=== PATIENT | female | born 1990 | race Two or more races ===

== ENCOUNTER 2017-01-24 10:39 | Emergency (ER) | payer MEDICAID ==
[~2017-01-24] VITALS: Ht 154.9 cm; Wt 130.2 kg
[~2017-01-24 10:39] MED LIST: AMOX-430 PO; IBUP-51 PO
[2017-01-24 10:47] VITALS: BP 144/94
== END 2017-01-24 11:04 | disposition home or self-care (01) ==
LOC: ER 10:48
DX: H10.9 Unspecified conjunctivitis (principal); F17.200 Nicotine dependence, unspecified, uncomplicated; J45.909 Unspecified asthma, uncomplicated
CPT/HCPCS: A4606; Z7610

== ENCOUNTER 2019-07-06 17:38 | Emergency (ER) | payer MEDICAID, OTHER ==
[~2019-07-06] VITALS: Ht 157.5 cm; Wt 156.5 kg
[2019-07-06] MEDS ORDERED: DEXAMETHASONE SOD PHOSPHATE 10 MG/ML VIAL ONE (18:24)
[2019-07-06] MEDS ORDERED: DEXAMETHASONE SOD PHOSPHATE 4 MG/ML VIAL IM ONE (18:30)
[2019-07-06 18:36] VITALS: BP 171/98
--- NOTE | 2019-07-06 19:46 | NUR ---
ASSUMED CARE FOR PT.
--- NOTE | 2019-07-06 19:46 | NUR ---
Patient discharged to home in stable condition. Written and verbal after care instructions given. Patient verbalizes understanding of instruction. Pt ambulatory with a steady gait
== END 2019-07-06 19:48 | disposition home or self-care (01) ==
LOC: ER 17:40
DX: J02.9 Acute pharyngitis, unspecified (principal); J06.9 Acute upper respiratory infection, unspecified; F17.200 Nicotine dependence, unspecified, uncomplicated; E66.01 Morbid (severe) obesity due to excess calories; Z79.899 Other long term (current) drug therapy; Z68.44 Body mass index [BMI] 60.0-69.9, adult
CPT/HCPCS: 71045; 87070; 87880; 96372; 99284; 99406; J1100; 86403-TC

== ENCOUNTER 2019-07-19 00:10 | Emergency (ER) | payer OTHER ==
[~2019-07-19] VITALS: Ht 154.9 cm; Wt 154.2 kg
--- NOTE | 2019-07-19 00:35 | NUR ---
PT BIBS. SOB SINCE 5PM. LATERAL CHEST PAIN UPON INSPIRATION. TACHYPNEIC. PT AAOX4, CONNECTED TO THE SUCTION DREDGE DUMPING SUPERVISOR AND POX. AWAITING FOR MD ARIZA
[2019-07-19] MEDS ORDERED: predniSONE 20 MG TABLET ONE (00:43)
[2019-07-19] MEDS ORDERED: ALBUTEROL FS 2.5 MG/3 ML VIAL.NEB ONE (00:45)
[2019-07-19] MEDS ORDERED: IPRATROPIUM NEB FS 0.5 MG/2.5 ML AMPUL.NEB ONE (00:45)
--- NOTE | 2019-07-19 00:48 | NUR ---
rt at bedside for breathing treatment
[2019-07-19] MEDS ORDERED: IPRATROPIUM NEB FS 0.5 MG/2.5 ML AMPUL.NEB NEB ONE (01:00)
[2019-07-19] MEDS ORDERED: ALBUTEROL FS 2.5 MG/3 ML VIAL.NEB NEB ONE (01:00)
[2019-07-19] MEDS ORDERED: predniSONE 20 MG TABLET PO ONE (01:00)
--- NOTE | 2019-07-19 01:26 | NUR ---
patient sleeping comfortably in bed. easily arousable through tactile and verbal stimuli. connected to monitor.
[2019-07-19 02:48] VITALS: BP 146/85
--- NOTE | 2019-07-19 02:48 | NUR ---
Patient discharged to home in stable condition. Written and verbal after care instructions given. Patient verbalizes understanding of instruction. Prescriptions given and explained to the patient.
== END 2019-07-19 02:49 | disposition home or self-care (01) ==
LOC: ER 00:11
DX: J20.9 Acute bronchitis, unspecified (principal); J98.11 Atelectasis; E66.01 Morbid (severe) obesity due to excess calories; F17.200 Nicotine dependence, unspecified, uncomplicated; Z68.44 Body mass index [BMI] 60.0-69.9, adult; Z79.899 Other long term (current) drug therapy
CPT/HCPCS: 71045; 94640 ×2; 99284; J7512

== ENCOUNTER 2019-07-20 00:40 | Emergency (ER) | payer OTHER ==
[~2019-07-20] VITALS: Ht 154.9 cm; Wt 154.2 kg
--- NOTE | 2019-07-20 01:20 | NUR ---
TO ER BED 11 AMBULATORY C/O L FLANK PAIN SINCE YESTERDAY. PT AAOX4 NO ACUTE DISTRESS NOTED, RESP EVEN AND UNLABORED. PENDING ER MD ARIZA.
[2019-07-20] MEDS ORDERED: KETOROLAC TROMETHAMINE INJ 60 MG/2 ML VIAL IM ONE ×2 (02:00→02:06)
[2019-07-20] MEDS ORDERED: LORAZEPAM INJ 2 MG/ML VIAL IM ONE (02:00)
[2019-07-20] MEDS ORDERED: LORAZEPAM 1 MG TABLET ONE (02:06)
--- NOTE | 2019-07-20 02:11 | NUR ---
PT MEDICATED ORDERED.
[2019-07-20 02:34] VITALS: BP 125/78
--- NOTE | 2019-07-20 02:34 | NUR ---
Patient discharged to home in stable condition. Written and verbal after care instructions given. Patient verbalizes understanding of instruction and Rx. Pt's is driving pt home. VSS
== END 2019-07-20 02:34 | disposition home or self-care (01) ==
LOC: ER 00:44
DX: S29.012A Strain of muscle and tendon of back wall of thorax, initial encounter (principal); F17.200 Nicotine dependence, unspecified, uncomplicated; X58.XXXA Exposure to other specified factors, initial encounter; Y93.89 Activity, other specified; Y92.89 Other specified places as the place of occurrence of the external cause; Y99.8 Other external cause status
CPT/HCPCS: 96372 ×2; 99283; J1885

== ENCOUNTER 2021-03-13 08:11 | Inpatient (IN) | payer OTHER ==
[~2021-03-13] VITALS: Ht 152.4 cm; Wt 186.2 kg
--- NOTE | 2021-03-13 08:20 | NUR ---
DR. ROBERTS AT BEDSIDE FOR EVAL.
--- NOTE | 2021-03-13 08:25 | NUR ---
The patient bibs with c/o "Had 2nd dose of Pfizer 03/11 been Coughing xcouple days today cant breathe". Noted the patient has non-productive cough and oxygen saturation in room air is at 85%. Respiration regular. The patient is attached to the monitor.
[2021-03-13 08:55] LABS: BASOPHILS % (AUTO) 0.4 % (0.0-2.0); EOSINOPHILS % (AUTO) 1.9 % (0.0-6.0); HEMATOCRIT 47 % (33-45); LYMPHOCYTES # (AUTO) 1.3 K/uL (0.8-4.8); LYMPHOCYTES % (AUTO) 12.9 % (20.0-44.0); MEAN CORPUSCULAR HGB CONC 32 g/dl (31.0-36.0); MEAN CORPUSCULAR VOLUME 80 fL (82-100); MONOCYTES # (AUTO) 0.7 K/uL (0.1-1.30); MONOCYTES % (AUTO) 7.1 % (2.0-12.0); NEUTROPHILS % (AUTO) 77.7 % (43.0-81.0); PLATELET COUNT (AUTO) 264 K/uL (150-450); WHITE BLOOD COUNT (AUTO) 10.2 K/uL (4.3-11.0)
--- NOTE | 2021-03-13 09:02 | NUR ---
covid swab done and sent to the lab
[2021-03-13 09:04] LABS: CARBON DIOXIDE 31 mmol/L (21-32); CHLORIDE 102 mmol/L (98-107); CREATININE 0.6 mg/dL (0.6-1.3); GLUCOSE 112 mg/dL (74-106); POTASSIUM 4.4 mmol/L (3.5-5.1); SODIUM SERUM 138 mmol/L (136-145); UREA NITROGEN, BLOOD 12 mg/dL (7-18)
[2021-03-13 09:17] LABS: ALANINE AMINOTRANSFERASE 33 U/L (12-78); ALBUMIN 2.9 g/dL (3.4-5.0); ALKALINE PHOSPHATASE 92 U/L (46-116); ASPARTATE AMINOTRANSFERASE 25 U/L (15-37); BILIRUBIN,DIRECT 0.1 mg/dL (0.0-0.2); BILIRUBIN,TOTAL 0.4 mg/dL (0.2-1.0)
--- NOTE | 2021-03-13 10:06 | NUR ---
CALLED LAB FOR PCR
--- NOTE | 2021-03-13 10:14 | NUR ---
PCR SWAB DONE AND SENT TO LAB
[2021-03-13] MEDS ORDERED: FUROSEMIDE 20 MG/2 ML VIAL IV ONE (10:30)
[2021-03-13] MEDS ORDERED: FUROSEMIDE 20 MG/2 ML VIAL ONE (10:33)
--- NOTE | 2021-03-13 10:56 | NUR ---
URINE COLLECTED AND SENT TO THE LAB
--- NOTE | 2021-03-13 10:57 | NUR ---
NUMBER FOR DR. WILSON [phone]
[2021-03-13 11:06] LABS: BILIRUBIN,URINE Negative (NEGATIVE); COLOR,URINE YELLOW (YELLOW); LEUKOCYTE ESTERASE ,URINE Negative (NEGATIVE); NITRITE, URINE Negative (NEGATIVE); PROTEIN,URINE Negative (NEGATIVE); UGLUCOSE Negative (NEGATIVE); UROBILINOGEN,URINE 0.2 EU/dL (0.2)
[2021-03-13 11:07] LABS: WBC,URINE 0-2 /HPF (0-3)
[2021-03-13 11:08] LABS: BACTERIA,URINE Few /HPF (None Seen); SQUAMOUS EPITHELIAL CELL,UR Few /HPF (None Seen)
--- NOTE | 2021-03-13 11:11 | NUR ---
DR BACH AT THE BEDSIDE
--- NOTE | 2021-03-13 11:15 | NUR ---
DR WILSON SPEAKING WITH DR ROBERTS
--- NOTE | 2021-03-13 11:46 | NUR ---
BED 111-1
--- NOTE | 2021-03-13 12:25 | NUR ---
REPORT GIVEN ADAM
--- NOTE | 2021-03-13 12:49 | NUR ---
THE PATIENT`S OXYGEN SAT LEVEL IS AT 95% WITH OXYGEN DELIVERING AT 5L/MIN VIA NASAL CANNULA.
[2021-03-13 13:10] VITALS: BP 140/90
--- NOTE | 2021-03-13 13:15 | NUR ---
THE PATIENT IS TRANSFERED TO ROOM 111 IN STABLE CONDITION AND PER POLICY.
--- NOTE | 2021-03-13 13:20 | NUR ---
RN OPENING NOTES RECEIVED PT FROM ER. A/O X4. ON 5L O2 VIA NC. O2 SAT OF 97%. NON PRODUCTIVE COUGH. NO S/S OF ACUTE RESPIRATORY DISTRESS NOTED. NO PAIN REPORTED AT THIS TIME. SKIN IS INTACT. RECEIVED 2 Clicker VACCINES. AMBULATORY. BELONGING LIST SIGNED. SAFETY MEASURES IN PLACE. CALL LIGHT WITHIN REACH. BED LOCKED AND IN LOWEST POSITION WITH SIDE RAILS UP X2. WILL CONTINUE TO MONITOR.
[2021-03-13 16:00] VITALS: BP 152/87
[2021-03-13 17:00] VITALS: BP 152/87
[2021-03-13] MEDS ORDERED: Z GUARD REMEDY 2 OZ OINT TP PRN (18:30)
[2021-03-13] MEDS ORDERED: ONDANSETRON HCL/PF 4 MG/2 ML VIAL IVP PRN (18:30)
--- NOTE | 2021-03-13 18:43 | NUR ---
RN CLOSING NOTES NO SIGNIFICANT CHANGES THROUGHOUT THE SHIFT. NOT IN RESPIRATORY DISTRESS. NO PAIN REPORTED AT THIS TIME. NEEDS ATTENDED. KEPT CLEAN AND COMFORTABLE. SAFETY MEASURES IN PLACE. WILL ENDORSE TO NIGHT RN FOR DOC.
[2021-03-13] MEDS: ASPIRIN EC 81 MG TABLET.DR PO SCH (18:48)
[2021-03-13] MEDS: ENOXAPARIN SODIUM 40 MG/0.4 ML DISP.SYRIN SQ SCH (18:49)
--- NOTE | 2021-03-13 19:35 | NUR ---
RN NOTES Received patient in bed AOx4, continues on oxygen 5L via NC, saturation 97%. Breathing normal no SOB noted. respiration even non labored. LAC IV intact no s/s of infiltration noted. Skin intact warm and dry to touch. All safety measures in place, call light within reach. Will cont to monitor for elsa.
[2021-03-13] MEDS ORDERED: BUMETANIDE INJ 6 MG in IV NS 0.9% 36 ML IV ONE (20:00)
[2021-03-13 21:00] VITALS: BP 158/98
[2021-03-13] MEDS: AMLODIPINE BESYLATE 5 MG TABLET PO SCH (21:33)
[2021-03-13] MEDS: LOSARTAN POTASSIUM 50 MG TABLET PO SCH (21:34)
[2021-03-13] MEDS: HYDROCODONE/APAP 5/325MG TABLET PO PRN (21:38)
[2021-03-14] VITALS (8 sets, daily range): BP systolic 113–149; BP diastolic 65–78
--- NOTE | 2021-03-14 06:51 | NUR ---
RN NOTES No changes noted during shift. vital signs remained wnl. Breathing normal continues with 5L NC. Skin warm and dry to touch. Patient is able to ambulate to the bathroom but noted with SOB and low saturation to 82%.Encourage pt to call for assistance when need to go to the bathroom, pt verbalized understanding. No complains during shift. All Safety measures in place, call light within reach. Will endorse to am nurse for elsa.
[2021-03-14 07:05] LABS: BASOPHILS % (AUTO) 0.3 % (0.0-2.0); EOSINOPHILS % (AUTO) 1.5 % (0.0-6.0); HEMATOCRIT 48 % (33-45); HEMOGLOBIN 15.2 g/dL (11.5-14.8); LYMPHOCYTES # (AUTO) 0.7 K/uL (0.8-4.8); LYMPHOCYTES % (AUTO) 8.7 % (20.0-44.0); MEAN CORPUSCULAR HGB CONC 32 g/dl (31.0-36.0); MEAN CORPUSCULAR VOLUME 81 fL (82-100); MONOCYTES # (AUTO) 0.6 K/uL (0.1-1.30); MONOCYTES % (AUTO) 7.8 % (2.0-12.0); NEUTROPHILS # (AUTO) 6.7 K/uL (1.8-8.9); NEUTROPHILS % (AUTO) 81.7 % (43.0-81.0); PLATELET COUNT (AUTO) 238 K/uL (150-450); RED BLOOD CELL COUNT(AUTO) 5.89 MIL/uL (4.0-5.2); WHITE BLOOD COUNT (AUTO) 8.2 K/uL (4.3-11.0)
[2021-03-14 07:31] LABS: ALBUMIN 2.8 g/dL (3.4-5.0); BILIRUBIN,TOTAL 0.5 mg/dL (0.2-1.0); CALCIUM, SERUM 8.5 mg/dL (8.5-10.1); CREATININE 0.7 mg/dL (0.6-1.3); MAGNESIUM 2.1 mg/dL (1.8-2.4); TOTAL PROTEIN, SERUM 8.5 g/dL (6.4-8.2)
--- NOTE | 2021-03-14 08:00 | NUR ---
DINKEY ENGINE OPERATOR NOTE PATIENT IN BED, ALL NEEDS ATTENDED ON TELE MONITOR ST HR 105 , WITH 5L NC OF O2 SATURATION 95% AT THIS TIME, ALERT , ORIENTED X4 ,C\O HEADACHE TYLENOL PO GIVEN , ABLE TO AMBULATE TO BR , KEEP CLEAN DRY , SEEN BY DR BAUMAN NOTIFIED THAT SHE HAS DRY COUGH , CALL LIGHT WITHIN REACH , BED IN LOWEST AND LOCKED POSITION, WILL MONITOR
[2021-03-14 08:05] LABS: THYROID STIMULATING HORMONE 2.584 uIU/mL (0.358-3.74)
[2021-03-14] MEDS: ACETAMINOPHEN 325 MG TABLET PO PRN ×2 (08:27→21:15)
[2021-03-14] MEDS: ASPIRIN EC 81 MG TABLET.DR PO SCH (08:28)
[2021-03-14] MEDS: PANTOPRAZOLE 40 MG TABLET.DR PO SCH (08:28)
[2021-03-14] MEDS: AMLODIPINE BESYLATE 5 MG TABLET PO SCH (08:28)
[2021-03-14] MEDS: LOSARTAN POTASSIUM 50 MG TABLET PO SCH (08:29)
[2021-03-14 09:26] LABS: ABG BASE EXCESS 7.6 mmol/L; ABG OXYGEN SATURATION 89.6 % (92.0-98.5); ABG PH 7.316 (7.350-7.450); ABG PO2 57.9 mmHg (75.0-100.0); AaDO2 171.5 mmHg; COHb 1.8 % (0.5-1.5); MetHb 0.2 % (0.0-1.5); O2Hb 87.8 % (94.0-97.0); SITE, ABG Right Radial; VENT MODE, BG 6L NC
--- NOTE | 2021-03-14 09:35 | NUR ---
FINANCIAL SALES PROFESSIONAL NOTE DR BAUMAN ORDERED ABG RT AT BEDSIDE RESULT GIVEN TO WITH ORDER MASTER MCCARTY WILL INFORM RT Addendum: 03/14/21 at 0938 by TRACEY ROBINS RN DR BAUMAN SEEN PATIENT AT 0830 ,NOTIFIED THAT HAS DRY COUGH
[2021-03-14] MEDS: GUAIFENESIN/D-METHORPHAN HB 5 ML UDC PO PRN ×2 (11:11→15:31)
--- NOTE | 2021-03-14 12:00 | NUR ---
receptionist telephone operator note dr Sue notified that patint is coughing new order given
--- NOTE | 2021-03-14 12:29 | NUR ---
television maintenance worker note dr canales at bedside updated patient condition aware of abg result
--- NOTE | 2021-03-14 14:20 | NUR ---
television operator note dr canales at bedside notified again that patent has cough stated that will check it out
--- NOTE | 2021-03-14 15:35 | NUR ---
CREDIT RISK ANALYTICS MANAGER NOTE STILL COUGHING ROBITUSSIN PO GIVEN
--- NOTE | 2021-03-14 16:40 | NUR ---
DISTRICT MANAGER PRIMARY CARE SALES NOTE CONSENT FOR VQ NUCLEAR MEDICINE SIGNED BY PATIENT
[2021-03-14] MEDS: IPRATROPIUM NEB FS 0.5 MG/2.5 ML AMPUL.NEB NEB SCH ×2 (16:47→20:01)
[2021-03-14] MEDS: ALBUTEROL FS 2.5 MG/0.5 ML VIAL.NEB NEB SCH ×2 (16:47→20:01)
--- NOTE | 2021-03-14 16:57 | NUR ---
CARTON CATCHER NOTE ON BREATHING TX ORDERED
--- NOTE | 2021-03-14 18:28 | NUR ---
color television console monitor note received call from Yillio that cant to procedure ,patient weight more then 350 lb, called to dr canales and inform about this
--- NOTE | 2021-03-14 19:30 | NUR ---
RN NOTE RECEIVED PATIENT SITTING AT EDGE OF BED. A/OX4. ON OXYGEN 6LMIN VIA NASAL CANULA. RESPIRATIONS ARE EVEN SOME SOB. NO C/O PAIN AT THIS TIME. EXTERNAL TELE MONITOR READS SINUS RHYTHM/ SINUS TACH. IN NO APPARENT DISTRESS. IV ACCESS IN LAC#20 PATENT AND SALINE LOCKED. BED IS LOW AND LOCKED, HOB ELEVATED IN HIGH FOWLERS, SIDE RAILS UP X2, CALL LIGHT WITHIN REACH. WILL CONTINUE TO MONITOR THROUGHOUT SHIFT.
[2021-03-14] MEDS: ENOXAPARIN SODIUM 40 MG/0.4 ML DISP.SYRIN SQ SCH (20:33)
--- NOTE | 2021-03-14 22:24 | NUR ---
PT REFUSED BIPAP. YUMIKO RUSSELL NOTIFIED.
[2021-03-15] VITALS (8 sets, daily range): BP systolic 111–155; BP diastolic 63–91
--- NOTE | 2021-03-15 06:42 | NUR ---
RN NOTE PATIENT SITTING AT EDGE OF BED. A/OX4. REMAIN ON OXYGEN 6LMIN VIA NASAL CANULA. NO RESP DISTRESS. INFORMED PATIENT REGARDING BIPAP WELL RT. BUT PATIENT CONTINUED TO REFUSE AND NOT TOLERATE SETTINGS. MANAGED HEADACHE WITH TYLENOL. TELE MONITOR READS SINUS SINUS TACH. IV ACCESS MAINTAINED IN LAC#20. BED REMAINS LOW AND LOCKED, HOB ELEVATED IN HIGH FOWLERS, SIDE RAILS UP X2, CALL LIGHT WITHIN REACH. WILL ENDORSE TO ONCOMING SHIFT.
[2021-03-15 07:16] LABS: BASOPHILS % (AUTO) 0.2 % (0.0-2.0); EOSINOPHILS % (AUTO) 0.8 % (0.0-6.0); HEMATOCRIT 47 % (33-45); HEMOGLOBIN 14.9 g/dL (11.5-14.8); LYMPHOCYTES % (AUTO) 14.7 % (20.0-44.0); MEAN CORPUSCULAR HGB CONC 32 g/dl (31.0-36.0); MEAN CORPUSCULAR VOLUME 81 fL (82-100); MONOCYTES # (AUTO) 0.8 K/uL (0.1-1.30); MONOCYTES % (AUTO) 11.1 % (2.0-12.0); NEUTROPHILS % (AUTO) 73.2 % (43.0-81.0); PLATELET COUNT (AUTO) 233 K/uL (150-450); RED BLOOD CELL COUNT(AUTO) 5.84 MIL/uL (4.0-5.2); WHITE BLOOD COUNT (AUTO) 6.8 K/uL (4.3-11.0)
--- NOTE | 2021-03-15 07:30 | NUR ---
TELE NURSE OPENING NOTE RECEIVE PATIENT FROM PM NURSE. A/O X4. ON NASAL CANULA ON 6L. SKIN INTACT. PATIENT ABLE TO AMBULATE. PATIENT ON MONITOR WITH SINUS RHYTHM. SLIGHT DISCOMFORT. TYLENOL WAS GIVEN. HEP LOCK ON LEFT AC WITH 20G. SITE WAS DAMP. DRESSING WAS CHANGE WITH PRESSURE DRESSING. CARE DISCUSSED, PATIENT VERBALIZED UNDERSTANDING. APPROPRIATE ISOLATION PRECAUTION OBSERVED. SAFETY MEASURE IN PLACE, BED LOW/LOCKED, HOB UP 30 DEGREE, SR UP X3, CALL LIGHT WITHIN REACH, WILL CONTINUE TO MONITOR.
--- NOTE | 2021-03-15 07:30 | NUR ---
TELE NURSE OPENING NOTE RECEIVED PATIENT FROM PM NURSE. A/O X4. ON NASAL CANULA ON 6L. SKIN INTACT. PATIENT ABLE TO AMBULATE. PATIENT ON MONITOR WITH SINUS RHYTHM. SLIGHT DISCOMFORT. TYLENOL WAS GIVEN. HEP LOCK ON LEFT AC WITH 20G. SITE WAS DAMP. DRESSING WAS CHANGE WITH PRESSURE DRESSING. CARE DISCUSSED, PATIENT VERBALIZED UNDERSTANDING. APPROPRIATE ISOLATION PRECAUTION OBSERVED. SAFETY MEASURE IN PLACE, BED LOW/LOCKED, HOB UP 30 DEGREE, SR UP X3, CALL LIGHT WITHIN REACH, WILL CONTINUE TO MONITOR.
[2021-03-15 07:32] LABS: CREATININE 0.7 mg/dL (0.6-1.3); POTASSIUM 4.6 mmol/L (3.5-5.1)
[2021-03-15] MEDS: ACETAMINOPHEN 325 MG TABLET PO PRN (08:12)
[2021-03-15] MEDS: IPRATROPIUM NEB FS 0.5 MG/2.5 ML AMPUL.NEB NEB SCH ×4 (08:13→19:53)
[2021-03-15] MEDS: ALBUTEROL FS 2.5 MG/0.5 ML VIAL.NEB NEB SCH ×4 (08:13→19:53)
[2021-03-15] MEDS: PANTOPRAZOLE 40 MG TABLET.DR PO SCH (08:29)
[2021-03-15] MEDS: ASPIRIN EC 81 MG TABLET.DR PO SCH (08:29)
[2021-03-15] MEDS: AMLODIPINE BESYLATE 5 MG TABLET PO SCH (08:30)
[2021-03-15] MEDS: LOSARTAN POTASSIUM 50 MG TABLET PO SCH (08:30)
--- NOTE | 2021-03-15 09:30 | NUR ---
RN NOTES DUE MEDS GIVEN.
[2021-03-15] MEDS: FUROSEMIDE 40 MG/4 ML VIAL IV SCH ×2 (11:46→16:30)
--- NOTE | 2021-03-15 15:36 | NUR ---
RN NOTES DC TELEMETRY PER MD
--- NOTE | 2021-03-15 18:30 | NUR ---
MS RN NOTES RECEIVED TRANSFER FROM [facility]. PATIENT MEDICALLY STABLE. WILL CONTINUE TO MONITOR.
--- NOTE | 2021-03-15 18:30 | NUR ---
TELE NURSE NOTE. PATIENT MEDS ALL MET. PATIENT TRANSFER TO [facility]. REPORT GIVEN TO BENNY.
--- NOTE | 2021-03-15 19:23 | NUR ---
MS RN CLOSING NOTES PATIENT REMAINS IN BED, AWAKE, A/O X4 AND STABLE. WILL ENDORSE TO INBOUND SALES REPRESENTATIVE NURSE.
--- NOTE | 2021-03-15 19:53 | NUR ---
RT NOTE PT REFUSING NOC BIPAP. EXPLAINED RISKS AND BENEFITS. NO RESPIRATORY DISTRESS NOTED AT THIS TIME.
[2021-03-15] MEDS: ENOXAPARIN SODIUM 40 MG/0.4 ML DISP.SYRIN SQ SCH (21:30)
[2021-03-15] MEDS: HYDROCODONE/APAP 5/325MG TABLET PO PRN (21:32)
--- NOTE | 2021-03-16 00:13 | NUR ---
RT NOTE ABG DRAWN. RESULTS REPORTED TO CHARGE NURSE MARY ANNE. NO CRITICAL VALUES NOTED. PT STILL REFUSING BIPAP. WILL MONITOR CLOSELY.
[2021-03-16 00:18] LABS: ABG BASE EXCESS 3.6 mmol/L; ABG OXYGEN SATURATION 94.3 % (92.0-98.5); ABG PCO2 61.8 mmHg (35.0-45.0); ABG PH 7.326 (7.350-7.450); ABG PO2 73.4 mmHg (75.0-100.0); AaDO2 169.9 mmHg; COHb 1.6 % (0.5-1.5); MetHb 0.3 % (0.0-1.5); O2Hb 92.5 % (94.0-97.0); SITE, ABG Left Radial; VENT MODE, BG N/C 44%
[2021-03-16 05:00] VITALS: BP 148/91
--- NOTE | 2021-03-16 05:47 | NUR ---
RN notes Awake in bed, resting with no distress noted. Breathing even and unlabored. On 6lpm O2 via nasal cannula, tolerating well. Complaint of severe headache, Russell give x 1. Ineffective, patient said it has no use, headache still very severe. Able to sleep afterwards with no distress. Kept clean and dry. Will continue to monitor.
--- NOTE | 2021-03-16 07:20 | NUR ---
MS RN OPENING NOTE RECEIVE PATIENT RESTING IN BED, PATIENT IS A/O X4., ABLE TO MAKE NEEDS KNOWN. PATIENT IS ON NASAL CANULA ON 6L BREATHING EVENLY AND NONLABORED. PATIENT HAS IV ACCESS ON LEFT AC WITH 20G. PATENT AND INTACT. PATIENT DOES NOT COMPLAIN OF PAIN OR DISCOMFORT AT THIS TIME. SAFETY MEASURE IN PLACE, BED LOW/LOCKED, HOB UP 30 DEGREE, SR UP X3, CALL LIGHT WITHIN REACH, WILL CONTINUE TO MONITOR.
[2021-03-16] MEDS: IPRATROPIUM NEB FS 0.5 MG/2.5 ML AMPUL.NEB NEB SCH ×4 (07:44→19:31)
[2021-03-16] MEDS: ALBUTEROL FS 2.5 MG/0.5 ML VIAL.NEB NEB SCH ×4 (07:44→19:31)
[2021-03-16 08:04] VITALS: BP 148/91
[2021-03-16] MEDS: PANTOPRAZOLE 40 MG TABLET.DR PO SCH (08:10)
[2021-03-16] MEDS: FUROSEMIDE 40 MG/4 ML VIAL IV SCH ×2 (08:10→16:16)
[2021-03-16] MEDS: LOSARTAN POTASSIUM 50 MG TABLET PO SCH (08:10)
[2021-03-16] MEDS: ASPIRIN EC 81 MG TABLET.DR PO SCH (08:10)
[2021-03-16] MEDS: AMLODIPINE BESYLATE 5 MG TABLET PO SCH (08:10)
[2021-03-16] MEDS: HYDROCODONE/APAP 5/325MG TABLET PO PRN ×2 (08:22→19:50)
--- NOTE | 2021-03-16 08:30 | NUR ---
RN NOTE PATIENT COMPLAINED OF HEADACHE 01/11, ASKED FOR PRN PAIN MEDICATION. VITALS WNL, PRN PAIN MEDICATION GIVEN. WILL CONTINUE TO MONITOR
[2021-03-16 08:36] VITALS: BP 139/89
[2021-03-16 08:41] LABS: BASOPHILS % (AUTO) 0.4 % (0.0-2.0); EOSINOPHILS % (AUTO) 0.3 % (0.0-6.0); HEMATOCRIT 47 % (33-45); HEMOGLOBIN 14.9 g/dL (11.5-14.8); LYMPHOCYTES # (AUTO) 1.4 K/uL (0.8-4.8); LYMPHOCYTES % (AUTO) 16.8 % (20.0-44.0); MEAN CORPUSCULAR HGB CONC 32 g/dl (31.0-36.0); MEAN CORPUSCULAR VOLUME 81 fL (82-100); MONOCYTES # (AUTO) 0.8 K/uL (0.1-1.30); MONOCYTES % (AUTO) 9.3 % (2.0-12.0); NEUTROPHILS # (AUTO) 6.1 K/uL (1.8-8.9); NEUTROPHILS % (AUTO) 73.2 % (43.0-81.0); PLATELET COUNT (AUTO) 240 K/uL (150-450); RED BLOOD CELL COUNT(AUTO) 5.85 MIL/uL (4.0-5.2); WHITE BLOOD COUNT (AUTO) 8.3 K/uL (4.3-11.0)
[2021-03-16 12:10] LABS: CALCIUM, SERUM 9.1 mg/dL (8.5-10.1); CREATININE 0.6 mg/dL (0.6-1.3); MAGNESIUM 2.6 mg/dL (1.8-2.4); PHOSPHORUS 3.6 mg/dL (2.5-4.9); POTASSIUM 4.7 mmol/L (3.5-5.1)
[2021-03-16] MEDS ORDERED: BUMETANIDE INJ 6 MG in IV NS 0.9% 36 ML IV ONE (16:00)
[2021-03-16 16:32] VITALS: BP 123/75
--- NOTE | 2021-03-16 17:59 | NUR ---
RN NOTE PATIENTS IV ACCESS NOTED TO BE DISLODGED. MULTIPLE IV ATTEMPTS. MD NOTIFIED, GAVE NEW ORDER FOR MIDLINE INSERTION. WILL CONTINUE TO MONITOR
--- NOTE | 2021-03-16 18:25 | NUR ---
MS RN CLOSING NOTE PATIENT RESTING IN BED, PATIENT IS A/O X4., ABLE TO MAKE NEEDS KNOWN. PATIENT IS ON NASAL CANULA ON 6L BREATHING EVENLY AND NONLABORED. PATIENT IS AWAITING MIDLINE PLACEMENT. PATIENT DOES NOT COMPLAIN OF PAIN OR DISCOMFORT AT THIS TIME. ALL MEDICATIONS GIVEN ORDERED. SAFETY MEASURE IN PLACE, BED LOW/LOCKED, HOB UP 30 DEGREE, SR UP X3, CALL LIGHT WITHIN REACH, WILL ENDORSE TO ONCOMING SHIFT
--- NOTE | 2021-03-16 19:37 | NUR ---
MS RN OPENING NOTE RECEIVED PT AWAKE IN BED. A/O X4. PT IS ON 6LPM O2 VIA NC SATTING AT 95%. NO SOB OR S/S OF RESPIRATORY DISTRESS NOTED. PT HAS NO C/O PAIN OR DISCOMFORT AT THIS TIME. PT IS AWAITING MIDLINE PLACEMENT. SAFETY PRECAUTIONS MAINTAINED. BED IN LOWEST LOCKED POSITION, HOB ELEVATED, SIDE RAILS UP X2. CALL LIGHT AND TABLE WITHIN REACH. WILL CONTINUE WITH PLAN OF CARE.
--- NOTE | 2021-03-16 19:50 | NUR ---
RN PAIN PT C/O HEADACHE RATED 7/10 ON PAIN SCALE. VSS. PER PT REQUEST, ADMINISTERED NORCO 5-325 PO Q4H PRN FOR PAIN. WILL REASSESS IN 1 HR AND CONTINUE TO MONITOR PT.
[2021-03-16 20:00] VITALS: BP 146/77
[2021-03-16] MEDS: ENOXAPARIN SODIUM 40 MG/0.4 ML DISP.SYRIN SQ SCH (20:14)
--- NOTE | 2021-03-16 20:40 | NUR ---
YUMIKO CAMERON AT BEDSIDE FOR MIDLINE INSERTION.
--- NOTE | 2021-03-16 20:50 | NUR ---
MIDLINE INSERTION DONE PER YUMIKO CAMERON AND PT TOLERATED WELL. IV ACCESS IS INTACT, PATENT, AND FLUSHING WELL. Addendum: 03/16/21 at 2108 by GUADALUPE PASCAL RN MIDLINE INSERTION IN LEFT UPPER ARM DONE PER YUMIKO CAMERON AND PT TOLERATED WELL. IV ACCESS IS INTACT, PATENT, AND FLUSHING WELL.
[2021-03-17] MEDS: HYDROCODONE/APAP 5/325MG TABLET PO PRN ×4 (03:23→21:36)
[2021-03-17 06:14] LABS: BASOPHILS % (AUTO) 0.3 % (0.0-2.0); EOSINOPHILS % (AUTO) 1.6 % (0.0-6.0); HEMATOCRIT 46 % (33-45); HEMOGLOBIN 14.8 g/dL (11.5-14.8); LYMPHOCYTES # (AUTO) 1.5 K/uL (0.8-4.8); LYMPHOCYTES % (AUTO) 19.8 % (20.0-44.0); MEAN CORPUSCULAR HGB CONC 32 g/dl (31.0-36.0); MEAN CORPUSCULAR VOLUME 81 fL (82-100); MONOCYTES # (AUTO) 0.7 K/uL (0.1-1.30); MONOCYTES % (AUTO) 8.7 % (2.0-12.0); NEUTROPHILS # (AUTO) 5.3 K/uL (1.8-8.9); NEUTROPHILS % (AUTO) 69.6 % (43.0-81.0); PLATELET COUNT (AUTO) 182 K/uL (150-450); RED BLOOD CELL COUNT(AUTO) 5.69 MIL/uL (4.0-5.2); WHITE BLOOD COUNT (AUTO) 7.6 K/uL (4.3-11.0)
--- NOTE | 2021-03-17 06:20 | NUR ---
MS RN CLOSING NOTE PT IS IN BED WITH EYES CLOSED, AROUSABLE TO STIMULATION. A/O X4. PT IS ON 6LPM O2 VIA NC SATTING AT 96%. NO SOB OR S/S OF RESPIRATORY DISTRESS NOTED. PT HAS NO C/O PAIN OR DISCOMFORT AT THIS TIME. IV ACCESS IS INTACT, PATENT, AND FLUSHING WELL. ALL NEEDS HAVE BEEN MET. PAIN MANAGEMENT ADMINISTERED PER ORDER. SAFETY PRECAUTIONS MAINTAINED AT ALL TIMES. BED IN LOWEST LOCKED POSITION, HOB ELEVATED, SIDE RAILS UP X2. CALL LIGHT AND TABLE WITHIN REACH. WILL ENDORSE TO ONCOMING NURSE FOR DOC.
[2021-03-17 06:43] LABS: CALCIUM, SERUM 8.9 mg/dL (8.5-10.1); CREATININE 0.6 mg/dL (0.6-1.3); MAGNESIUM 2.5 mg/dL (1.8-2.4); POTASSIUM 4.1 mmol/L (3.5-5.1)
--- NOTE | 2021-03-17 07:11 | NUR ---
MS RN OPENING NOTE RECEIVED PATIENT RESTING IN BED, PATIENT IS A/O X4., ABLE TO MAKE NEEDS KNOWN. PATIENT IS ON NASAL CANULA ON 6L BREATHING EVENLY AND NONLABORED. PATIENT HAS IV ACCESS ON LEFT UPPER ARM MIDLINE WITH 18G. PATENT AND INTACT. PATIENT DOES NOT COMPLAIN OF PAIN OR DISCOMFORT AT THIS TIME. SAFETY MEASURE IN PLACE, BED LOW/LOCKED, HOB UP 30 DEGREE, SR UP X3, CALL LIGHT WITHIN REACH, WILL CONTINUE TO MONITOR.
[2021-03-17] MEDS: ALBUTEROL FS 2.5 MG/0.5 ML VIAL.NEB NEB SCH ×4 (07:35→20:41)
[2021-03-17] MEDS: IPRATROPIUM NEB FS 0.5 MG/2.5 ML AMPUL.NEB NEB SCH ×4 (07:35→20:40)
[2021-03-17 08:00] VITALS: BP 166/98
--- NOTE | 2021-03-17 08:20 | NUR ---
RN NOTE PATIENT COMPLAINED OF HEADACHE 01/11 ASKED FOR PRN PAIN MEDICATION, VITALS WNL, WILL GIVE PRN PAIN MEDICATION. RECEIVED CRITICAL LAB VALUE CO2 40 MD NOTIFIED, AND CELLOPHANE WORKER NOTIFIED. NEW ORDER FOR ABG. MIDLINE NOT FLUSHING, NO BLOOD RETURN. CHARGE MADE AWARE. NEW ORDER FOR MIDLINE REINSERTION. WILL CONTINUE TO MONITOR
[2021-03-17] MEDS: FUROSEMIDE 40 MG/4 ML VIAL IV SCH ×2 (08:22→16:09)
[2021-03-17] MEDS: LOSARTAN POTASSIUM 50 MG TABLET PO SCH (08:22)
[2021-03-17] MEDS: PANTOPRAZOLE 40 MG TABLET.DR PO SCH (08:22)
[2021-03-17] MEDS: ASPIRIN EC 81 MG TABLET.DR PO SCH (08:22)
[2021-03-17] MEDS: AMLODIPINE BESYLATE 5 MG TABLET PO SCH (08:23)
--- NOTE | 2021-03-17 09:03 | NUR ---
RN NOTE MD AT BEDSIDE GAVE ORDER TO TITRATE O2 TO 2 LPM AND ADJUST BIPAP SETTINGS TO 16/8
[2021-03-17 09:06] VITALS: BP 140/80
--- NOTE | 2021-03-17 09:30 | NUR ---
RN NOTE MIDLINE DISLODGED, MD NOTIFIED WITH NEW ORDER TO REINSERT MIDLINE. MIDLINE REINSERTED R UPPER ARM. WILL CONTINUE TO MONITOR
[2021-03-17 11:03] LABS: ABG BASE EXCESS 8.2 mmol/L; ABG OXYGEN SATURATION 91.3 % (92.0-98.5); ABG PCO2 57.3 mmHg (35.0-45.0); ABG PH 7.406 (7.350-7.450); COHb 1.4 % (0.5-1.5); MetHb 0.2 % (0.0-1.5); O2Hb 89.8 % (94.0-97.0); SITE, ABG Right Radial; VENT MODE, BG N/C
--- NOTE | 2021-03-17 15:38 | NUR ---
RN NOTE PATIENT COMPLAINED OF HEADACHE 01/11 ASKED FOR PRN PAIN MEDICATION, VITALS WNL, WILL GIVE PRN PAIN MEDICATION.
[2021-03-17 16:00] VITALS: BP 153/86
--- NOTE | 2021-03-17 18:31 | NUR ---
MS RN CLOSING NOTE PATIENT RESTING IN BED, PATIENT IS A/O X4., ABLE TO MAKE NEEDS KNOWN. PATIENT IS ON NASAL CANULA ON 2L BREATHING EVENLY AND NONLABORED. PATIENT HAS IV ACCESS TO R UPPER ARM MIDLINE. PATIENT DOES NOT COMPLAIN OF PAIN OR DISCOMFORT AT THIS TIME. ALL MEDICATIONS GIVEN ORDERED. SAFETY MEASURE IN PLACE, BED LOW/LOCKED, HOB UP 30 DEGREE, SR UP X3, CALL LIGHT WITHIN REACH, WILL ENDORSE TO ONCOMING SHIFT
[2021-03-17] MEDS ORDERED: BUMETANIDE INJ 6 MG in IV NS 0.9% 36 ML IV ONE (19:30)
--- NOTE | 2021-03-17 19:45 | NUR ---
MS RN OPENING NOTES PATIENT RESTING IN BED, PATIENT IS A/O X4. PATIENT IS ON OXYGEN VIA NASAL CANULA ON 2L/MIN. BREATHING EVENLY AND NONLABORED. PATIENT HAS IV ACCESS TO ROMAN MIDLINE. IV IS INTACT, PATENT, FLUSHING WELL, AND SALINE LOCKED. NO COMPLAINTS OF PAIN AT THIS TIME. SAFETY MEASURES IN PLACE: BED IN LOWEST, LOCKED POSITION, BRAKES ON, HOB UP 30 DEGREE, SR UP X3. CALL LIGHT AND TABLE WITHIN REACH. WILL CONTINUE TO MONITOR.
[2021-03-17 20:00] VITALS: BP 147/91
[2021-03-17] MEDS: ENOXAPARIN SODIUM 40 MG/0.4 ML DISP.SYRIN SQ SCH (20:33)
[2021-03-17 21:00] VITALS: BP 147/91
--- NOTE | 2021-03-17 21:36 | NUR ---
ADMINISTERED NORCO FOR PAIN, PER MD ORDER. WILL CONTINUE TO MONITOR.
[2021-03-18] MEDS: ACETAMINOPHEN 325 MG TABLET PO PRN (00:58)
[2021-03-18] MEDS: HYDROCODONE/APAP 5/325MG TABLET PO PRN (05:41)
--- NOTE | 2021-03-18 05:44 | NUR ---
ADMINISTERED NORCO FOR PAIN, PER MD ORDER. WILL CONTINUE TO MONITOR.
--- NOTE | 2021-03-18 06:40 | NUR ---
RT NOTE pt refused bipap. pt showed severe anxiety and is unable to tolerate bipap. will continue to monitor. Addendum: 03/18/21 at 0641 by DEVI WILLIAMSON RT Amended: Links added.
--- NOTE | 2021-03-18 06:45 | NUR ---
MS RN CLOSING NOTES PATIENT RESTING IN BED, PATIENT IS A/O X4. PATIENT IS ON OXYGEN VIA NASAL CANULA ON 2L/MIN. BREATHING EVENLY AND NONLABORED. PATIENT HAS IV ACCESS TO ROMAN MIDLINE. IV IS INTACT, PATENT, FLUSHING WELL, AND SALINE LOCKED. TREATED PAIN THROUGHOUT SHIFT. ALL NEEDS MET. PT KEPT CLEAN AND DRY. SAFETY MEASURES IN PLACE: BED IN LOWEST, LOCKED POSITION, BRAKES ON, HOB UP 30 DEGREE, SIDERAILS UP X3. CALL LIGHT AND TABLE WITHIN REACH. WILL ENDORSE TO ONCOMING SHIFT.
[2021-03-18 06:59] LABS: BASOPHILS % (AUTO) 0.4 % (0.0-2.0); EOSINOPHILS % (AUTO) 2.3 % (0.0-6.0); HEMATOCRIT 48 % (33-45); HEMOGLOBIN 15.5 g/dL (11.5-14.8); LYMPHOCYTES # (AUTO) 1.6 K/uL (0.8-4.8); LYMPHOCYTES % (AUTO) 19.6 % (20.0-44.0); MEAN CORPUSCULAR HGB CONC 32 g/dl (31.0-36.0); MEAN CORPUSCULAR VOLUME 80 fL (82-100); MONOCYTES # (AUTO) 0.6 K/uL (0.1-1.30); MONOCYTES % (AUTO) 7.5 % (2.0-12.0); NEUTROPHILS # (AUTO) 5.6 K/uL (1.8-8.9); NEUTROPHILS % (AUTO) 70.2 % (43.0-81.0); PLATELET COUNT (AUTO) 206 K/uL (150-450); RED BLOOD CELL COUNT(AUTO) 5.99 MIL/uL (4.0-5.2)
[2021-03-18 07:00] LABS: CALCIUM, SERUM 9.4 mg/dL (8.5-10.1); CREATININE 0.6 mg/dL (0.6-1.3); MAGNESIUM 2.1 mg/dL (1.8-2.4); PHOSPHORUS 4.6 mg/dL (2.5-4.9); POTASSIUM 4.1 mmol/L (3.5-5.1)
[2021-03-18 08:00] VITALS: BP_SYST 120; BP_SYST 156; BP_DIAS 89; BP_DIAS 97
--- NOTE | 2021-03-18 08:00 | NUR ---
m/s back end engineer: initial assessment received pt in bed awake, a/ox4. remains on o2 at 2l/min via n/c. no s/s of resp. distress noted. hob elevated. instructed to call for assistance.
[2021-03-18] MEDS: ALBUTEROL FS 2.5 MG/0.5 ML VIAL.NEB NEB SCH ×4 (08:12→19:30)
[2021-03-18] MEDS: IPRATROPIUM NEB FS 0.5 MG/2.5 ML AMPUL.NEB NEB SCH ×4 (08:12→19:30)
[2021-03-18] MEDS: ASPIRIN EC 81 MG TABLET.DR PO SCH (09:15)
[2021-03-18] MEDS: FUROSEMIDE 40 MG/4 ML VIAL IV SCH ×2 (09:15→16:52)
[2021-03-18] MEDS: PANTOPRAZOLE 40 MG TABLET.DR PO SCH (09:15)
[2021-03-18] MEDS: LOSARTAN POTASSIUM 50 MG TABLET PO SCH (09:16)
[2021-03-18] MEDS: AMLODIPINE BESYLATE 5 MG TABLET PO SCH (09:17)
--- NOTE | 2021-03-18 11:25 | NUR ---
m/s rodding anode worker: md visit whitley tobias (auxiliary equipment operator) at bedside and spoke to pt re: d'c planning home today with low flow oxygen and bipap and clearance from dr. velez. all questions and concerns answered by whitley tobias, pt verbalized understanding.
--- NOTE | 2021-03-18 12:50 | NUR ---
m/s rotary filter operator: notes checked pt o2 saturation on room air and satting at 88%. place o2 back on low flow oxygen as ordered.
--- NOTE | 2021-03-18 14:50 | NUR ---
m/s building construction estimator: notes f/u made to dennys castillo) and oxygen has been arranged and will be delivered here in 4-6 hours and bipap machine, r.t. will set it up at home. pt made aware. pt made aware.
--- NOTE | 2021-03-18 15:45 | NUR ---
m/s swimmer: cardio consult seen and examined by dr. velez and will review her echo and will let us know if pt is clear to go home. pt verbalized understanding.
[2021-03-18 16:00] VITALS: BP 126/95
--- NOTE | 2021-03-18 17:15 | NUR ---
m/s station mechanic apprentice: notes dr. velez called and okay for pt to go home on cardiac standpoint. whitley tobias (milling machine set up operator) notified and made aware and will put the order in with prescriptions. pt made aware.
[2021-03-18] MEDS ORDERED: ASPI-1420 PO (17:37)
[2021-03-18] MEDS ORDERED: AMLO5TAB4 PO (17:37)
[2021-03-18] MEDS ORDERED: ALBU18HF2 INH (17:37)
[2021-03-18] MEDS ORDERED: FURO-144 PO (17:37)
[2021-03-18] MEDS ORDERED: PRED20TA PO (17:37)
[2021-03-18] MEDS ORDERED: LOSA50TA39 PO (17:37)
--- NOTE | 2021-03-18 17:40 | NUR ---
m/s commercial loan assistant: notes received discharge order from whitley tobias (embossing toolsetter). order acknowledged. awaiting for home o2 to deliver here.
--- NOTE | 2021-03-18 18:30 | NUR ---
m/s net applications developer: notes discharge instructions with e scripts given to pt and went over with her prescriptions and follow up appointment and outpatient sleep study with pulmonary function test. pt verbalized understanding. still awaiting for her oxygen to be delivered here. instructed to call for assistance. will continue to monitor.
--- NOTE | 2021-03-18 19:10 | NUR ---
m/s us customs and border officer: notes midline removed with no bleeding noted. awaiting for sister to pick her up. report given to kena (rn) for continuity of care.
--- NOTE | 2021-03-18 19:14 | NUR ---
PT DISCHARGED HOME WITH SELF CARE AND HOME OXYGEN AT THIS TIME. PT MEDICALLY STABLE AND CLEARED FOR DISCHARGE BY FOREIGN DON NP. ALL PT CARE, NEEDS, MEDICATIONS, AND TREATMENT ADMINISTERED ANTICIPATED PER ORDER. ALL DISCHARGE INSTRUCTIONS INCLUDING HOME OXYGEN USE AND EQUIPMENT PROVIDED. MD VERBALIZED UNDERSTANDING. ID BAND REMOVED. NO IV ACCESS NOTED. PT ACCOMPANIED TO LOBBY BY SISTER. KAE, CHARGE NURSE AND FOREIGN DON NP MADE AWARE.
== END 2021-03-18 19:14 | disposition home or self-care (01) | DRG 194 ==
LOC: ER 08:14 → TELE1 12:26 → MEDSG1 03-15 16:58 → MED 03-15 17:44
PROVIDERS: ADMIT Nurse Practitioner Acute Care; ATTEND Nurse Practitioner Family
PROC: 05HF33Z Insertion of Infusion Device into Left Cephalic Vein, Percutaneous Approach (ICD-10-PCS; principal; 2021-03-16)
PROC: 05HD33Z Insertion of Infusion Device into Right Cephalic Vein, Percutaneous Approach (ICD-10-PCS; 2021-03-17)
DX: I11.0 Hypertensive heart disease with heart failure (principal); J96.21 Acute and chronic respiratory failure with hypoxia; E43 Unspecified severe protein-calorie malnutrition; I50.33 Acute on chronic diastolic (congestive) heart failure; E87.2 Acidosis; E66.2 Morbid (severe) obesity with alveolar hypoventilation; E88.09 Other disorders of plasma-protein metabolism, not elsewhere classified; Z20.822 Contact with and (suspected) exposure to COVID-19; Z68.45 Body mass index [BMI] 70 or greater, adult; E61.1 Iron deficiency; J96.22 Acute and chronic respiratory failure with hypercapnia; F17.200 Nicotine dependence, unspecified, uncomplicated
CPT/HCPCS: 36410; 36415; 36600; 71045-TC; 80048-TC; 80053-TC; 80061-TC; 80076-TC; 81001; 82803-TC; 83540-TC; 83605-TC; 83735-TC; 83880; 84100-TC; 84443-TC; 84484-TC; 84703-TC; 85025-TC; 85730-TC; 87040-TC; 87081-TC; 93307-TC; 94799-TC; C9803; G0378; J1650; J1940; J3490; J7050; U0003

== ENCOUNTER 2021-07-12 06:58 | Emergency (ER) | payer OTHER ==
[~2021-07-12] VITALS: Ht 154.9 cm; Wt 190.5 kg
[~2021-07-12 06:58] MED LIST changes: +ALBU18HF2 INH; +AMLO5TAB4 PO; -AMOX-430 PO; +ASPI-1420 PO; +FURO-144 PO; -IBUP-51 PO; +LOSA50TA39 PO; +PRED20TA PO
--- NOTE | 2021-07-12 06:58 | NUR ---
PT BIBSELF C/O RUQ PAIN SINCE WED. WORST SINCE THIS MORNING. PT IS AAOX4, NOT IN RESPIRATORY DISTRESS, HOOKED TO STAVE GRADER, KEPT RESTED AND COMFORTABLE. WILL CONTINUE TO MONITOR.
[2021-07-12] MEDS ORDERED: ONDANSETRON HCL/PF 4 MG/2 ML VIAL IVP ONE (07:30)
[2021-07-12] MEDS ORDERED: IV NS 0.9% 1,000 ML BAG IV ONE (07:30)
[2021-07-12] MEDS ORDERED: ONDANSETRON HCL/PF 4 MG/2 ML VIAL ONE (07:49)
[2021-07-12 07:51] LABS: BASOPHILS # (AUTO) 0.1 K/uL (0.0-0.2); BASOPHILS % (AUTO) 1.1 % (0.0-2.0); EOSINOPHILS % (AUTO) 2.8 % (0.0-6.0); HEMATOCRIT 48 % (33-45); HEMOGLOBIN 14.8 g/dL (11.5-14.8); LYMPHOCYTES # (AUTO) 1.9 K/uL (0.8-4.8); LYMPHOCYTES % (AUTO) 14.9 % (20.0-44.0); MEAN CORPUSCULAR HGB CONC 31 g/dl (31.0-36.0); MEAN CORPUSCULAR VOLUME 80 fL (82-100); MONOCYTES # (AUTO) 0.6 K/uL (0.1-1.30); MONOCYTES % (AUTO) 4.9 % (2.0-12.0); NEUTROPHILS # (AUTO) 9.8 K/uL (1.8-8.9); NEUTROPHILS % (AUTO) 76.3 % (43.0-81.0); PLATELET COUNT (AUTO) 244 K/uL (150-450); RED BLOOD CELL COUNT(AUTO) 5.91 MIL/uL (4.0-5.2); WHITE BLOOD COUNT (AUTO) 12.8 K/uL (4.3-11.0)
[2021-07-12] MEDS ORDERED: MORPHINE SULFATE INJ 4 MG/ML DISP.SYRIN ONE ×2 (07:55→08:46)
[2021-07-12 08:06] LABS: ALBUMIN 2.9 g/dL (3.4-5.0); BILIRUBIN,DIRECT 0.1 mg/dL (0.0-0.2); BILIRUBIN,TOTAL 0.4 mg/dL (0.2-1.0); CALCIUM, SERUM 8.4 mg/dL (8.5-10.1); CREATININE 0.8 mg/dL (0.6-1.3); POTASSIUM 4.7 mmol/L (3.5-5.1); TOTAL PROTEIN, SERUM 8.3 g/dL (6.4-8.2)
--- NOTE | 2021-07-12 08:27 | NUR ---
THE PATIENT UNABLE TO PROVIDE URIEN SAMPLE AT THIS TIME. THE PATIENT STATED SHE WILL TRY TO GIVE URINE SAMPLE LATER.
[2021-07-12] MEDS ORDERED: MORPHINE SULFATE INJ 2 MG/ML DISP.SYRIN IV ONE ×2 (08:30→09:00)
--- NOTE | 2021-07-12 08:32 | NUR ---
US TECH AT THE BEDSIDE
[2021-07-12 10:00] LABS: BILIRUBIN,URINE NEGATIVE (NEGATIVE); COLOR,URINE YELLOW (YELLOW); LEUKOCYTE ESTERASE ,URINE NEGATIVE (NEGATIVE); NITRITE, URINE NEGATIVE (NEGATIVE); PH,URINE 6.5 (5.0-8.0); PROTEIN,URINE NEGATIVE (NEGATIVE); UGLUCOSE NEGATIVE (NEGATIVE); UROBILINOGEN,URINE 0.2 EU/dL (0.2)
[2021-07-12] MEDS ORDERED: IBUP-1955 PO (10:34)
[2021-07-12] MEDS ORDERED: HYDR-4303 PO (10:34)
[2021-07-12] MEDS ORDERED: HYDROCODONE/APAP 10/325MG TABLET ONE (10:59)
[2021-07-12] MEDS ORDERED: HYDROCODONE/APAP 10/325MG TABLET PO ONE (11:00)
[2021-07-12 11:03] VITALS: BP 141/89
--- NOTE | 2021-07-12 11:03 | NUR ---
IV removed. Catheter intact and site benign. Pressure and 4x4 applied to site. No bleeding noted. Patient discharged to home in stable condition. Written and verbal after care instructions given. Patient verbalizes understanding of instruction.
== END 2021-07-12 11:05 | disposition home or self-care (01) ==
LOC: ER 06:59
DX: S39.011A Strain of muscle, fascia and tendon of abdomen, initial encounter (principal); I10 Essential (primary) hypertension; F17.290 Nicotine dependence, other tobacco product, uncomplicated; Z79.82 Long term (current) use of aspirin; Z79.899 Other long term (current) drug therapy; X58.XXXA Exposure to other specified factors, initial encounter; Y93.89 Activity, other specified; Y92.89 Other specified places as the place of occurrence of the external cause; Y99.8 Other external cause status
CPT/HCPCS: 36415; 76700; 80048; 80076; 81003; 83690; 84703; 85025; 96361; 96374; 96375; 96376; 99284; J2270 ×2; J2405; J7030

== ENCOUNTER 2021-07-16 13:20 | Emergency (ER) | payer OTHER ==
[~2021-07-16] VITALS: Ht 154.9 cm; Wt 195.0 kg
[~2021-07-16 13:20] MED LIST changes: +HYDR-4303 PO; +IBUP-1955 PO
--- NOTE | 2021-07-16 13:46 | NUR ---
TO ER BED 10, SYNCOPAL EPISODE WHILE SITTING IN A CHAIR THIS MORNING, DENIES PAIN, DENIES SOB, CONNECTED TO MONITOR, AWAITING MD ARIZA
--- NOTE | 2021-07-16 16:07 | NUR ---
X-RAY TECH AT THE BEDSIDE
--- NOTE | 2021-07-16 16:23 | NUR ---
URINE COLLECTED AND SENT TO LAB
[2021-07-16 16:41] LABS: BASOPHILS # (AUTO) 0.1 K/uL (0.0-0.2); BASOPHILS % (AUTO) 0.5 % (0.0-2.0); HEMATOCRIT 48 % (33-45); HEMOGLOBIN 15.1 g/dL (11.5-14.8); LYMPHOCYTES # (AUTO) 2.4 K/uL (0.8-4.8); LYMPHOCYTES % (AUTO) 17.6 % (20.0-44.0); MEAN CORPUSCULAR HGB CONC 31 g/dl (31.0-36.0); MEAN CORPUSCULAR VOLUME 81 fL (82-100); MONOCYTES % (AUTO) 7.5 % (2.0-12.0); NEUTROPHILS # (AUTO) 9.7 K/uL (1.8-8.9); NEUTROPHILS % (AUTO) 72.4 % (43.0-81.0); PLATELET COUNT (AUTO) 187 K/uL (150-450); RED BLOOD CELL COUNT(AUTO) 5.98 MIL/uL (4.0-5.2); WHITE BLOOD COUNT (AUTO) 13.4 K/uL (4.3-11.0)
[2021-07-16 17:00] LABS: BILIRUBIN,URINE NEGATIVE (NEGATIVE); LEUKOCYTE ESTERASE ,URINE NEGATIVE (NEGATIVE); NITRITE, URINE NEGATIVE (NEGATIVE); PH,URINE 6.5 (5.0-8.0); PROTEIN,URINE NEGATIVE (NEGATIVE); UGLUCOSE NEGATIVE (NEGATIVE); UROBILINOGEN,URINE 0.2 EU/dL (0.2)
[2021-07-16 17:22] LABS: COLOR,URINE STRAW (YELLOW)
[2021-07-16 17:25] LABS: ALBUMIN 2.8 g/dL (3.4-5.0); BILIRUBIN,DIRECT 0.1 mg/dL (0.0-0.2); BILIRUBIN,TOTAL 0.9 mg/dL (0.2-1.0); TOTAL PROTEIN, SERUM 7.5 g/dL (6.4-8.2)
[2021-07-16 17:31] LABS: RBC,URINE 0-2 /HPF (0-2); SQUAMOUS EPITHELIAL CELL,UR Rare /HPF (None Seen); WBC,URINE 0-2 /HPF (0-3)
[2021-07-16 17:32] LABS: BACTERIA,URINE Few /HPF (None Seen)
[2021-07-16 17:43] LABS: CALCIUM, SERUM 8.6 mg/dL (8.5-10.1); CREATININE 0.7 mg/dL (0.6-1.3); POTASSIUM 4.6 mmol/L (3.5-5.1)
--- NOTE | 2021-07-16 19:00 | NUR ---
CALLED [facility] FOR [facility] DON [facility] HAS THE BIGGER MACHINE BUT HAVE NO CAPACITY
--- NOTE | 2021-07-16 20:00 | NUR ---
Patient is resting comfortably in bed with eyes closed. Easily aroused. VSS
--- NOTE | 2021-07-16 20:30 | NUR ---
pt placed on 2L O2 for comfort while sleeping
--- NOTE | 2021-07-16 22:00 | NUR ---
Patient discharged to home in stable condition. Written and verbal after care instructions given. Patient verbalizes understanding of instruction. PT ambulatory with a steady gait
[2021-07-16 22:53] VITALS: BP 138/77
== END 2021-07-16 22:00 | disposition home or self-care (01) ==
LOC: ER 13:27
DX: R10.11 Right upper quadrant pain (principal); I10 Essential (primary) hypertension; E66.01 Morbid (severe) obesity due to excess calories; G47.33 Obstructive sleep apnea (adult) (pediatric); R55 Syncope and collapse; Z68.45 Body mass index [BMI] 70 or greater, adult; F17.200 Nicotine dependence, unspecified, uncomplicated; Z79.899 Other long term (current) drug therapy; Z79.82 Long term (current) use of aspirin
CPT/HCPCS: 36415; 71045-TC; 80048-TC; 80076-TC; 81001; 83605-TC; 83690-TC; 83880; 84484-TC; 84703-TC; 85025-TC; 87040-TC

== ENCOUNTER 2022-05-13 13:50 | Inpatient (IN) | payer OTHER ==
[~2022-05-13] VITALS: Ht 154.9 cm; Wt 188.2 kg
[2022-05-13] MEDS: methylPREDNISolone SOD SUCC 40 MG/ML VIAL IV SCH (01:20)
--- NOTE | 2022-05-13 14:20 | NUR ---
BIBS C/O WORSENING SOB SINCE YESTERDAY. AMBULATORY, PLACED ON BED, DYSPNEIC RR-24 SATURATING AT 77%RA.
--- NOTE | 2022-05-13 14:22 | NUR ---
APPLLIED O2 5LIT VIA NC SATURATING AT 96%
[2022-05-13] MEDS ORDERED: ALBUTEROL FS 2.5 MG/3 ML VIAL.NEB ONE ×2 (14:43→17:19)
[2022-05-13] MEDS ORDERED: IPRATROPIUM NEB FS 0.5 MG/2.5 ML AMPUL.NEB ONE ×2 (14:43→17:19)
--- NOTE | 2022-05-13 14:44 | NUR ---
RT AT BEDSIDE FOR BREATHING TX
[2022-05-13] MEDS ORDERED: methylPREDNISolone SOD SUCC 125 MG/2ML VIAL ONE (14:57)
[2022-05-13] MEDS ORDERED: IPRATROPIUM NEB FS 0.5 MG/2.5 ML AMPUL.NEB NEB ONE ×2 (15:00→17:00)
[2022-05-13] MEDS ORDERED: ALBUTEROL FS 2.5 MG/0.5 ML VIAL.NEB NEB ONE (15:00)
[2022-05-13] MEDS ORDERED: methylPREDNISolone SOD SUCC 125 MG/2ML VIAL IV ONE (15:00)
[2022-05-13] MEDS ORDERED: CEFTRIAXONE 1 G in IV D5W 50 ML IV ONE (17:00)
[2022-05-13] MEDS ORDERED: AZITHROMYCIN 500 MG in IV D5W 250 ML IV ONE (17:00)
[2022-05-13] MEDS ORDERED: ALBUTEROL FS 2.5 MG/3 ML VIAL.NEB CONTNEB ONE (17:00)
--- NOTE | 2022-05-13 17:09 | NUR ---
COVID SWAB COLLECTED AND SENT TO LAB
[2022-05-13 20:59] LABS: BASOPHILS % (AUTO) 0.1 % (0.0-2.0); EOSINOPHILS % (AUTO) 0.2 % (0.0-6.0); HEMATOCRIT 49 % (33-45); HEMOGLOBIN 15.5 g/dL (11.5-14.8); LYMPHOCYTES # (AUTO) 0.6 K/uL (0.8-4.8); LYMPHOCYTES % (AUTO) 5.8 % (20.0-44.0); MEAN CORPUSCULAR HGB CONC 32 g/dl (31.0-36.0); MEAN CORPUSCULAR VOLUME 80 fL (82-100); MONOCYTES # (AUTO) 0.3 K/uL (0.1-1.30); MONOCYTES % (AUTO) 2.6 % (2.0-12.0); NEUTROPHILS % (AUTO) 91.3 % (43.0-81.0); PLATELET COUNT (AUTO) 229 K/uL (150-450); RED BLOOD CELL COUNT(AUTO) 6.18 MIL/uL (4.0-5.2); WHITE BLOOD COUNT (AUTO) 9.8 K/uL (4.3-11.0)
[2022-05-13 21:12] LABS: CALCIUM, SERUM 8.6 mg/dL (8.5-10.1); CREATININE 0.9 mg/dL (0.6-1.3); POTASSIUM 4.6 mmol/L (3.5-5.1)
[2022-05-13 21:31] LABS: ALBUMIN 2.7 g/dL (3.4-5.0); BILIRUBIN,DIRECT 0.2 mg/dL (0.0-0.2); BILIRUBIN,TOTAL 0.4 mg/dL (0.2-1.0); TOTAL PROTEIN, SERUM 8.4 g/dL (6.4-8.2)
[2022-05-13] MEDS ORDERED: MAG HYDROX/AL HYDROX/SIMETH 30 ML UDC PO PRN (22:30)
[2022-05-13] MEDS ORDERED: ONDANSETRON HCL/PF 4 MG/2 ML VIAL IVP PRN (22:30)
[2022-05-13] MEDS ORDERED: MAGNESIUM HYDROXIDE 30 ML UDC PO PRN (22:30)
[2022-05-13] MEDS ORDERED: Z GUARD REMEDY 4 OZ OINT TP PRN (22:30)
[2022-05-14] MEDS ORDERED: IV NS 0.9% 1,000 ML IV PRN (00:30)
[2022-05-14] MEDS ORDERED: methylPREDNISolone SOD SUCC 40 MG/ML VIAL ONE ×2 (01:07→07:38)
[2022-05-14] MEDS: methylPREDNISolone SOD SUCC 40 MG/ML VIAL IV SCH ×4 (01:20→21:39)
[2022-05-14] MEDS: IPRATROPIUM NEB FS 0.5 MG/2.5 ML AMPUL.NEB NEB SCH ×4 (01:56→19:40)
[2022-05-14] MEDS: ALBUTEROL FS 2.5 MG/3 ML VIAL.NEB NEB SCH ×4 (01:56→19:40)
[2022-05-14] MEDS ORDERED: ALBUTEROL FS 2.5 MG/3 ML VIAL.NEB ONE ×2 (02:07→07:23)
[2022-05-14] MEDS ORDERED: IPRATROPIUM NEB FS 0.5 MG/2.5 ML AMPUL.NEB ONE ×2 (02:07→07:23)
--- NOTE | 2022-05-14 02:09 | NUR ---
RT AT BEDSIDE FOR BREATHING TX
--- NOTE | 2022-05-14 03:29 | NUR ---
RAPID FLU SENT TO LAB
--- NOTE | 2022-05-14 05:10 | NUR ---
PT AWAKE AND ALERT BREATHING UNLABORED DENIES SOB 6LPM NC. REMAINS ON MONITOR AND V/S WNL.
[2022-05-14] MEDS ORDERED: ACETAMINOPHEN 325 MG TABLET ONE (05:12)
[2022-05-14] MEDS: ACETAMINOPHEN 325 MG TABLET PO PRN (05:13)
[2022-05-14 06:32] LABS: BASOPHILS % (AUTO) 0.1 % (0.0-2.0); EOSINOPHILS % (AUTO) 0.1 % (0.0-6.0); HEMATOCRIT 51 % (33-45); HEMOGLOBIN 16.2 g/dL (11.5-14.8); LYMPHOCYTES # (AUTO) 0.7 K/uL (0.8-4.8); LYMPHOCYTES % (AUTO) 7.6 % (20.0-44.0); MEAN CORPUSCULAR HGB CONC 32 g/dl (31.0-36.0); MEAN CORPUSCULAR VOLUME 82 fL (82-100); MONOCYTES # (AUTO) 0.3 K/uL (0.1-1.30); MONOCYTES % (AUTO) 3.2 % (2.0-12.0); NEUTROPHILS # (AUTO) 8.7 K/uL (1.8-8.9); PLATELET COUNT (AUTO) 123 K/uL (150-450); RED BLOOD CELL COUNT(AUTO) 6.28 MIL/uL (4.0-5.2); WHITE BLOOD COUNT (AUTO) 9.8 K/uL (4.3-11.0)
[2022-05-14 07:09] LABS: CALCIUM, SERUM 8.4 mg/dL (8.5-10.1); CREATININE 0.6 mg/dL (0.6-1.3); MAGNESIUM 2.5 mg/dL (1.8-2.4); PHOSPHORUS 5.4 mg/dL (2.5-4.9); POTASSIUM 4.9 mmol/L (3.5-5.1)
[2022-05-14 07:17] LABS: THYROID STIMULATING HORMONE 1.551 uIU/mL (0.358-3.74)
--- NOTE | 2022-05-14 07:30 | NUR ---
asleep, repositioned, O2SAT went up from 88% to 93%
[2022-05-14] MEDS ORDERED: PANTOPRAZOLE 40 MG TABLET.DR PO ONE (07:39)
[2022-05-14] MEDS ORDERED: FURO40TA5 PO (07:44)
[2022-05-14] MEDS ORDERED: NITR0.4T48 SL (07:44)
[2022-05-14] MEDS: PANTOPRAZOLE 40 MG TABLET.DR PO SCH (07:49)
[2022-05-14 08:58] LABS: ABG BASE EXCESS -2.5 mmol/L; ABG PCO2 89.1 mmHg (35.0-45.0); ABG PH 7.141 (7.350-7.450); COHb 1.5 % (0.5-1.5); MetHb 0.4 % (0.0-1.5); O2Hb 92.2 % (94.0-97.0); SITE, ABG Right Radial; VENT MODE, BG SM 8LPM
[2022-05-14] MEDS: AZITHROMYCIN 250 MG TABLET PO SCH (09:22)
[2022-05-14] MEDS ORDERED: AZITHROMYCIN 250 MG TABLET ONE (09:22)
--- NOTE | 2022-05-14 10:00 | NUR ---
RT ABG done on SM 8LPM. New order of BIPAP / per MD Rodriguez. Pt is refusing being placed on BIPAP due to panic attacks. MD Rodriguez aware of refusal. Pt alert and responsive at this time. Will continue to monitor.
[2022-05-14] MEDS ORDERED: FUROSEMIDE 20 MG/2 ML VIAL IV ONE (11:30)
[2022-05-14] MEDS ORDERED: FUROSEMIDE 40 MG/4 ML VIAL ONE (11:36)
--- NOTE | 2022-05-14 12:12 | NUR ---
REPORT GIVEN TO AMY CALDERON FOR DOC
--- NOTE | 2022-05-14 12:40 | NUR ---
Admit to ICU from ER. Pt AAOx4 ambulatory to bed. Cont Simple Face Mask as ordered. Pt refused Bipap @ this time. VSS, Pt speaks in complete sentences. Encourage to take deep slow breathes. follow up admitting orders at this time
[2022-05-14 13:00] VITALS: BP 128/68
[2022-05-14] MEDS ORDERED: ACETAMINOPHEN 650 MG/20.3 ML UDC NG PRN (14:30)
[2022-05-14] MEDS ORDERED: ACETAMINOPHEN 650 MG/20.3 ML UDC NG ONE (14:30)
[2022-05-14] MEDS: GUAIFENESIN/CODEINE 10 ML UDC PO PRN ×2 (14:32→21:39)
[2022-05-14 14:46] VITALS: BP 151/82
[2022-05-14 15:02] VITALS: BP 155/94
--- NOTE | 2022-05-14 15:12 | NUR ---
Witnessed Desaturation of Pt O2 Sat to mid 70's. while attempting to sleep. Emphasize the importance of wearing Bipap, but pt adamantly refuses to wear bipap and states the she really have bad anxiety and becomes very restless when she wears it. Dr Rodriguez aware of pt refusal and non compliance to plan of care.
[2022-05-14 16:04] VITALS: BP 166/95
[2022-05-14] MEDS: CEFTRIAXONE 1 G in IV D5W 50 ML IV SCH (17:29)
--- NOTE | 2022-05-14 20:05 | NUR ---
PT SWITCHED TO VENTI MASK 15L, 50% DUE TO LOW SAT RN NOTIFIED.
--- NOTE | 2022-05-14 20:08 | NUR ---
PT REFUSES BIPAP. WILL CONTINUE TO MONITOR.
[2022-05-15] VITALS (15 sets, daily range): BP systolic 139–178; BP diastolic 68–110
[2022-05-15] MEDS: ALBUTEROL FS 2.5 MG/3 ML VIAL.NEB NEB SCH ×4 (01:07→19:43)
[2022-05-15] MEDS: IPRATROPIUM NEB FS 0.5 MG/2.5 ML AMPUL.NEB NEB SCH ×4 (01:07→19:43)
--- NOTE | 2022-05-15 05:47 | NUR ---
Pt refused bipap but willing to use the venti mask throughout the night. Off the mask pt would destat down to the 70s o2.
[2022-05-15] MEDS: methylPREDNISolone SOD SUCC 40 MG/ML VIAL IV SCH ×3 (05:55→22:41)
[2022-05-15] MEDS: PANTOPRAZOLE 40 MG TABLET.DR PO SCH (05:57)
[2022-05-15] MEDS: ACETAMINOPHEN 325 MG TABLET PO PRN ×2 (06:17→22:43)
[2022-05-15 06:22] LABS: HEMATOCRIT 51 % (33-45); HEMOGLOBIN 15.7 g/dL (11.5-14.8); LYMPHOCYTES # (AUTO) 1.1 K/uL (0.8-4.8); LYMPHOCYTES % (AUTO) 6.5 % (20.0-44.0); MEAN CORPUSCULAR HGB CONC 31 g/dl (31.0-36.0); MEAN CORPUSCULAR VOLUME 82 fL (82-100); MONOCYTES # (AUTO) 0.9 K/uL (0.1-1.30); MONOCYTES % (AUTO) 5.5 % (2.0-12.0); NEUTROPHILS # (AUTO) 14.2 K/uL (1.8-8.9); PLATELET COUNT (AUTO) 202 K/uL (150-450); RED BLOOD CELL COUNT(AUTO) 6.28 MIL/uL (4.0-5.2); WHITE BLOOD COUNT (AUTO) 16.1 K/uL (4.3-11.0)
[2022-05-15 06:33] LABS: CALCIUM, SERUM 9.2 mg/dL (8.5-10.1); CREATININE 0.6 mg/dL (0.6-1.3); MAGNESIUM 2.6 mg/dL (1.8-2.4); PHOSPHORUS 3.8 mg/dL (2.5-4.9); POTASSIUM 5.1 mmol/L (3.5-5.1)
--- NOTE | 2022-05-15 07:36 | NUR ---
RN NOTES RECEIVED PATIENT A/OX3, MORBID OBESITY ,PATIENT ON VENTURE MASK 15L, SITTING ON THE BED. PATIENT NEED KEEP REMINDING DO NOT REMOVE MASK, ISOLATION OF PENDING COVID 19 PCR TEST RESULT. PATIENT USING BEDSIDE COMMODE. RT WITH THE PATIENT FOR BREATHING TREATMENT. CALL LIGHT WITHIN TO REACH. WILL FOLLOW UP.
[2022-05-15 08:49] LABS: ABG BASE EXCESS 6.2 mmol/L; ABG OXYGEN SATURATION 90.9 % (92.0-98.5); ABG PCO2 82.5 mmHg (35.0-45.0); ABG PO2 61.1 mmHg (75.0-100.0); AaDO2 158.6 mmHg; COHb 2.3 % (0.5-1.5); MetHb 0.4 % (0.0-1.5); O2Hb 88.4 % (94.0-97.0); SITE, ABG Right Radial; VENT MODE, BG NC 6 LPM
[2022-05-15] MEDS: AZITHROMYCIN 250 MG TABLET PO SCH (08:49)
--- NOTE | 2022-05-15 11:07 | NUR ---
RN NOTES SEEN PATIENT VIA HOSPITALIST Dr LIZZIE BACH GET VERBAL ORDER TO KEEP PATIENT NC FIO2-88.9% BECAUSE OF PULMONARY PHYSIOLOGICAL PROBLEM. WILL FOLLOW UP.
[2022-05-15] MEDS: GUAIFENESIN/CODEINE 10 ML UDC PO PRN ×2 (14:01→20:41)
[2022-05-15] MEDS: FUROSEMIDE 40 MG/4 ML VIAL IV SCH ×2 (14:01→18:54)
--- NOTE | 2022-05-15 14:01 | NUR ---
RN NOTES ADMINISTERED ROBITUSSIN SYRUP 10ML Q 6HR FOR COUGH PER PATIENT REQUEST. WILL FOLLOW UP.
--- NOTE | 2022-05-15 16:45 | NUR ---
RN NOTES PATIENT GETTING ECHO AT THIS TIME EF -65%.
[2022-05-15] MEDS: CEFTRIAXONE 1 G in IV D5W 50 ML IV SCH (17:17)
[2022-05-15 17:33] LABS: BAND % (MANUAL) 5 % (0.0-5.0); LYMPHOCYTES % (MANUAL) 8 % (16-48); MONOCYTES % (MANUAL) 4 % (0-11.0); NEUTROPHILS % (MANUAL) 83 (42-76)
--- NOTE | 2022-05-15 18:20 | NUR ---
RN NOTES PATIENT ON 6LNC O2-87%, TOLERATED DINNER 10% BECAUSE DOES NOT LIKE IT. DUE MEDICATION ADMINISTERED, REFUSED PAIN, GET LAB RESULT COVID PCR IS NEGATIVE. PATIENT USING BEDSIDE MONITOR. CALL LIGHT WITHIN TO REACH. ENDORSED ONCOMING NURSE DOC.
[2022-05-16] VITALS (23 sets, daily range): BP systolic 143–197; BP diastolic 72–129
[2022-05-16] MEDS: ALBUTEROL FS 2.5 MG/3 ML VIAL.NEB NEB SCH ×5 (01:03→20:44)
[2022-05-16] MEDS: IPRATROPIUM NEB FS 0.5 MG/2.5 ML AMPUL.NEB NEB SCH ×5 (01:03→20:44)
[2022-05-16] MEDS: methylPREDNISolone SOD SUCC 40 MG/ML VIAL IV SCH ×3 (05:44→17:39)
[2022-05-16 06:09] LABS: BASOPHILS % (AUTO) 0.1 % (0.0-2.0); EOSINOPHILS % (AUTO) 0.1 % (0.0-6.0); HEMATOCRIT 53 % (33-45); HEMOGLOBIN 16.2 g/dL (11.5-14.8); LYMPHOCYTES % (AUTO) 8.3 % (20.0-44.0); MEAN CORPUSCULAR HGB CONC 31 g/dl (31.0-36.0); MEAN CORPUSCULAR VOLUME 82 fL (82-100); MONOCYTES # (AUTO) 0.5 K/uL (0.1-1.30); MONOCYTES % (AUTO) 4.2 % (2.0-12.0); NEUTROPHILS # (AUTO) 10.5 K/uL (1.8-8.9); NEUTROPHILS % (AUTO) 87.3 % (43.0-81.0); PLATELET COUNT (AUTO) 197 K/uL (150-450); RED BLOOD CELL COUNT(AUTO) 6.45 MIL/uL (4.0-5.2)
[2022-05-16 06:37] LABS: CALCIUM, SERUM 9.5 mg/dL (8.5-10.1); CREATININE 0.6 mg/dL (0.6-1.3); MAGNESIUM 2.4 mg/dL (1.8-2.4); PHOSPHORUS 3.8 mg/dL (2.5-4.9); POTASSIUM 4.6 mmol/L (3.5-5.1)
--- NOTE | 2022-05-16 06:46 | NUR ---
TEACHER RESOURCE PT WITH MULTIPLE EPISODES OF DESATURATION TO MID 70s; DECREASED HR NOTED WELL. PT WOKE UP CONFUSED MULTIPLE TIMES AND REMOVED NASAL CANNULA.
[2022-05-16] MEDS: ACETAMINOPHEN 325 MG TABLET PO PRN (08:33)
[2022-05-16] MEDS: PANTOPRAZOLE 40 MG TABLET.DR PO SCH (08:33)
[2022-05-16] MEDS: AZITHROMYCIN 250 MG TABLET PO SCH (08:34)
[2022-05-16 09:24] LABS: ABG OXYGEN SATURATION 96.1 % (92.0-98.5); ABG PCO2 60.7 mmHg (35.0-45.0); ABG PH 7.411 (7.350-7.450); ABG PO2 76.1 mmHg (75.0-100.0); AaDO2 168.4 mmHg; COHb 2.1 % (0.5-1.5); MetHb 0.3 % (0.0-1.5); O2Hb 93.8 % (94.0-97.0); SITE, ABG Right Radial; VENT MODE, BG NC 6 LPM
[2022-05-16] MEDS: CEFTRIAXONE 1 G in IV D5W 50 ML IV SCH (17:39)
--- NOTE | 2022-05-16 19:08 | NUR ---
RECEIVED PATIENT FROM THE OFF-GOING NURSE, AWILDA, MORBID OBESITY, PATIENT ON N/C @6LPM, SITTING ON THE BED. NEEDS TO BE REMINDED NOT TO REMOVE N/C,. PATIENT MEDICATED PER MD ORDERS (SEE eMAR). PATIENT ONLY EATS CHEERIOS CEREAL AND LOW FAT MILK FOR ALL 3 MEALS. PATIENT USING BEDSIDE COMMODE. RT WITH THE PATIENT FOR BREATHING TREATMENT. CALL LIGHT WITHIN TO REACH. WILL FOLLOW UP. BEDSIDE REPORT GIVEN TO ON-COMING NURSE.
--- NOTE | 2022-05-16 23:45 | NUR ---
[employer] PT REPEATEDLY REMOVES NASAL CANNULA. O2 SENSOR AND BP CUFF. HAVE TOLD THE PT MULTIPLE TIMES THE IMPORTANCE TO BE MONITORED AT ALL TIMES. PT STATES SHE IS SORRY.
[2022-05-17] VITALS (43 sets, daily range): BP systolic 109–164; BP diastolic 30–125
[2022-05-17] MEDS: ALBUTEROL FS 2.5 MG/3 ML VIAL.NEB NEB SCH ×3 (01:31→13:30)
[2022-05-17] MEDS: IPRATROPIUM NEB FS 0.5 MG/2.5 ML AMPUL.NEB NEB SCH ×4 (01:31→19:30)
--- NOTE | 2022-05-17 02:25 | NUR ---
PARKER PT AGREED TO BE PLACED ON BIPAP RATE 12 04/08 35%
[2022-05-17 05:05] LABS: CALCIUM, SERUM 9.5 mg/dL (8.5-10.1); CREATININE 0.6 mg/dL (0.6-1.3); MAGNESIUM 2.2 mg/dL (1.8-2.4); PHOSPHORUS 4.3 mg/dL (2.5-4.9); POTASSIUM 4.5 mmol/L (3.5-5.1)
[2022-05-17 05:11] LABS: BASOPHILS % (AUTO) 0.3 % (0.0-2.0); HEMATOCRIT 52 % (33-45); HEMOGLOBIN 16.5 g/dL (11.5-14.8); LYMPHOCYTES # (AUTO) 1.3 K/uL (0.8-4.8); LYMPHOCYTES % (AUTO) 13.3 % (20.0-44.0); MEAN CORPUSCULAR HGB CONC 32 g/dl (31.0-36.0); MEAN CORPUSCULAR VOLUME 80 fL (82-100); MONOCYTES % (AUTO) 11.1 % (2.0-12.0); NEUTROPHILS # (AUTO) 7.1 K/uL (1.8-8.9); NEUTROPHILS % (AUTO) 75.3 % (43.0-81.0); PLATELET COUNT (AUTO) 211 K/uL (150-450); RED BLOOD CELL COUNT(AUTO) 6.51 MIL/uL (4.0-5.2); WHITE BLOOD COUNT (AUTO) 9.5 K/uL (4.3-11.0)
--- NOTE | 2022-05-17 05:42 | NUR ---
TOE PUNCHER PT WOKE UP AND REMOVED BIPAP
--- NOTE | 2022-05-17 06:00 | NUR ---
ONCOLOGY CONSULTANT PT WAS PLACED ON O2 3L AND DID NOT TOLERATE; OXYGEN INCREASED TO 5 L VIA NASAL CANNULA.
--- NOTE | 2022-05-17 06:05 | NUR ---
CREAM CHEESE MAKER PT NOTED WITH BLOOD IN URINE; STATES IT IS PROBABLY HER PERIOD.
[2022-05-17] MEDS: PANTOPRAZOLE 40 MG TABLET.DR PO SCH (08:07)
[2022-05-17] MEDS: methylPREDNISolone SOD SUCC 40 MG/ML VIAL IV SCH ×2 (08:07→17:19)
[2022-05-17] MEDS: AZITHROMYCIN 250 MG TABLET PO SCH (08:07)
[2022-05-17] MEDS: GUAIFENESIN/CODEINE 10 ML UDC PO PRN ×2 (09:26→20:09)
--- NOTE | 2022-05-17 11:12 | NUR ---
SVT RHYTHM ON THE MONITOR; INSTRUCTED PATIENT TO TAKE A SLOW DEEP BREATHS; CHARGE NURSE AT BEDSIDE AWARE
--- NOTE | 2022-05-17 11:26 | NUR ---
CHARGE NURSE-IRVIN NOTIFIED OPHELIA REGARDING SVT RHYTHM.
[2022-05-17] MEDS ORDERED: ADENOSINE 6 MG/2 ML VIAL IVP ONE (11:30)
[2022-05-17] MEDS ORDERED: ADENOSINE 6 MG/2 ML VIAL IVP STA (11:40)
[2022-05-17] MEDS ORDERED: FENTANYL PF 100MCG/2ML AMPUL IV STA (11:50)
[2022-05-17] MEDS ORDERED: KETAMINE HCL(200MG/20ML) 10 MG/ML VIAL IV STA (11:53)
--- NOTE | 2022-05-17 11:55 | NUR ---
DR BACH ARRIVED AT THE UNIT AND SEEN PATIENT, AWARE OF THE SVT RHYTHM.
[2022-05-17] MEDS ORDERED: KETAMINE HCL (500MG/10ML) 50 MG/ML VIAL IV STA (11:59)
--- NOTE | 2022-05-17 12:15 | NUR ---
JORY-ISREAL, RT-YUMIKO MEJIA STAFF AT THE BEDSIDE; FENTANYL AND KETAMINE IVP GIVEN PER ORDER FOR POSSIBLE CARDIOVERSION.
--- NOTE | 2022-05-17 12:18 | NUR ---
PATIENT RETURNED TO SINUS RHYTHM, NO SHOCK NEEDED.
[2022-05-17] MEDS ORDERED: DILTIAZEM HCL 50 MG IV IV STA (12:24)
[2022-05-17] MEDS ORDERED: DILTIAZEM HCL IV 125 MG in IV NS 0.9% 100 ML IV PRN (12:30)
--- NOTE | 2022-05-17 12:32 | NUR ---
CARDIZEM IVP GIVEN PER ORDER AND CARDIZEM DRIP ORDER GIVEN BY
[2022-05-17] MEDS: AMLODIPINE BESYLATE 5 MG TABLET PO SCH (13:14)
[2022-05-17] MEDS: LOSARTAN POTASSIUM 50 MG TABLET PO SCH (13:14)
--- NOTE | 2022-05-17 13:15 | NUR ---
CARDIZEM DRIP BAG STILL UNAVAILABLE; CHARGE NURSE FOLLOWED UP WITH PHARMACY.
[2022-05-17] MEDS: IV NS 0.9% 250 ML IV PRN (13:58)
[2022-05-17] MEDS ORDERED: hydrOXYzine 10 MG TABLET PO PRN (14:30)
[2022-05-17] MEDS: CEFTRIAXONE 1 G in IV D5W 50 ML IV SCH (17:20)
[2022-05-18] VITALS (27 sets, daily range): BP systolic 109–171; BP diastolic 41–123
[2022-05-18] MEDS: IPRATROPIUM NEB FS 0.5 MG/2.5 ML AMPUL.NEB NEB SCH ×4 (01:30→19:30)
[2022-05-18] MEDS: GUAIFENESIN/CODEINE 10 ML UDC PO PRN ×3 (03:02→20:12)
--- NOTE | 2022-05-18 07:16 | NUR ---
RECEIVED REPORT FROM YUMIKO FORBES. WILL CONTINUE PLAN OF CARE AND ANTICIPATE NEEDS.
--- NOTE | 2022-05-18 07:25 | NUR ---
WOUND CARE CONSULT: PT PRESENTS WITH REDNESS TO ABDOMEN AND LOWER LEGS WHICH PT STATES IS CHRONIC. PT DENIES NEED FOR FULL SKIN ASSESSMENT AND STATES IS AMBULATORY. WILL SEE PRN. PT DENIES NEED FOR BARIATRIC BED.
[2022-05-18] MEDS: methylPREDNISolone SOD SUCC 40 MG/ML VIAL IV SCH ×2 (08:01→16:52)
[2022-05-18] MEDS: LOSARTAN POTASSIUM 50 MG TABLET PO SCH (08:02)
[2022-05-18] MEDS: AMLODIPINE BESYLATE 5 MG TABLET PO SCH (08:02)
[2022-05-18] MEDS: PANTOPRAZOLE 40 MG TABLET.DR PO SCH (08:02)
[2022-05-18 09:17] LABS: BASOPHILS % (AUTO) 0.3 % (0.0-2.0); EOSINOPHILS % (AUTO) 0.1 % (0.0-6.0); HEMATOCRIT 54 % (33-45); HEMOGLOBIN 16.8 g/dL (11.5-14.8); LYMPHOCYTES % (AUTO) 17.5 % (20.0-44.0); MEAN CORPUSCULAR HGB CONC 31 g/dl (31.0-36.0); MEAN CORPUSCULAR VOLUME 80 fL (82-100); MONOCYTES # (AUTO) 1.1 K/uL (0.1-1.30); MONOCYTES % (AUTO) 9.3 % (2.0-12.0); NEUTROPHILS # (AUTO) 8.3 K/uL (1.8-8.9); NEUTROPHILS % (AUTO) 72.8 % (43.0-81.0); PLATELET COUNT (AUTO) 232 K/uL (150-450); RED BLOOD CELL COUNT(AUTO) 6.72 MIL/uL (4.0-5.2); WHITE BLOOD COUNT (AUTO) 11.5 K/uL (4.3-11.0)
[2022-05-18 09:20] LABS: CALCIUM, SERUM 9.1 mg/dL (8.5-10.1); CREATININE 0.6 mg/dL (0.6-1.3); MAGNESIUM 2.1 mg/dL (1.8-2.4); POTASSIUM 4.3 mmol/L (3.5-5.1)
[2022-05-18] MEDS: DILTIAZEM HCL CD 240 MG PO SCH (10:10)
[2022-05-18] MEDS: hydrALAZINE HCL 50 MG TABLET PO SCH ×2 (13:06→16:52)
[2022-05-18] MEDS: IV NS 0.9% 250 ML IV PRN (13:49)
[2022-05-18] MEDS: CEFTRIAXONE 1 G in IV D5W 50 ML IV SCH (17:00)
--- NOTE | 2022-05-18 19:19 | NUR ---
Hand off report given to Seema CALDERON for continuation of care.
--- NOTE | 2022-05-18 20:05 | NUR ---
Pt refuses Q6 nebulizer Tx. States that it is causing her heart rate to spike. SPO2 94%, HR 90 during assessment. No S/S of SOB or respiratory distress. RN notified of Tx refusal. Pt also refuses to be on BiPAP noc as ordered. RN also notified.
[2022-05-19] VITALS: BP 151/96
[2022-05-19] MEDS: IPRATROPIUM NEB FS 0.5 MG/2.5 ML AMPUL.NEB NEB SCH ×3 (00:05→14:20)
[2022-05-19 04:00] VITALS: BP 152/96
[2022-05-19] MEDS: GUAIFENESIN/CODEINE 10 ML UDC PO PRN (05:59)
--- NOTE | 2022-05-19 06:34 | NUR ---
End oF Shift, patient in bed a/o x4, on 5lpm via NC with o2 sta level >88%, no sob/acute distress noted throughout the night, with persistent cough, Robitussin prn administered 2x during the night, refusing BIPAP at night, refusing bed alarm as well, education provided, risks an benefits explained, still refused, otherwise no significant change in condition during the night, bed locked and in lowest position, HOB elevated at all times, will endorse continuity of care to oncoming nurse.
--- NOTE | 2022-05-19 07:10 | NUR ---
RN NOTES RECEIVED PT ON BED, A/OX4, ON 5L O2 N/C , O2 SAT WNL, ON TELE SR HR IN 90'S , IV SITE CDI, SR UP X3, CALL LIGHT WITHIN EASY REACH, BED LOCKED AND IN LOWEST POSITION, CONTINUE TO MONITOR.
[2022-05-19 07:57] LABS: CALCIUM, SERUM 9.1 mg/dL (8.5-10.1); CREATININE 0.6 mg/dL (0.6-1.3); MAGNESIUM 2.1 mg/dL (1.8-2.4); PHOSPHORUS 5.5 mg/dL (2.5-4.9); POTASSIUM 4.5 mmol/L (3.5-5.1)
[2022-05-19 08:00] VITALS: BP 142/96
[2022-05-19 08:23] LABS: BASOPHILS % (AUTO) 0.1 % (0.0-2.0); EOSINOPHILS % (AUTO) 0.1 % (0.0-6.0); HEMATOCRIT 56 % (33-45); HEMOGLOBIN 17.5 g/dL (11.5-14.8); LYMPHOCYTES # (AUTO) 1.2 K/uL (0.8-4.8); LYMPHOCYTES % (AUTO) 12.5 % (20.0-44.0); MEAN CORPUSCULAR HGB CONC 31 g/dl (31.0-36.0); MEAN CORPUSCULAR VOLUME 80 fL (82-100); MONOCYTES # (AUTO) 0.7 K/uL (0.1-1.30); MONOCYTES % (AUTO) 6.7 % (2.0-12.0); NEUTROPHILS % (AUTO) 80.6 % (43.0-81.0); PLATELET COUNT (AUTO) 225 K/uL (150-450); RED BLOOD CELL COUNT(AUTO) 6.95 MIL/uL (4.0-5.2); WHITE BLOOD COUNT (AUTO) 9.9 K/uL (4.3-11.0)
[2022-05-19] MEDS: LOSARTAN POTASSIUM 50 MG TABLET PO SCH (08:29)
[2022-05-19] MEDS: methylPREDNISolone SOD SUCC 40 MG/ML VIAL IV SCH (08:30)
[2022-05-19] MEDS: DILTIAZEM HCL CD 240 MG PO SCH (08:30)
[2022-05-19] MEDS: hydrALAZINE HCL 50 MG TABLET PO SCH (08:30)
[2022-05-19] MEDS: PANTOPRAZOLE 40 MG TABLET.DR PO SCH (08:30)
[2022-05-19 12:00] VITALS: BP 136/98
[2022-05-19 12:20] VITALS: BP 136/100
[2022-05-19] MEDS ORDERED: hydrALAZINE HCL 50 MG TABLET PO SCH (13:00)
--- NOTE | 2022-05-19 15:00 | NUR ---
patient signed against medical advice despite explanation of risk including .pt. insisted to leave and verbalized she has oxygen at home.instructed to comeback to ER when symptoms persist.
--- NOTE | 2022-05-19 15:28 | NUR ---
dr. bautista frias.
== END 2022-05-19 15:29 | disposition left against medical advice (07) | DRG 139 ==
LOC: ER 13:52 → TRANSITION 05-14 00:38 → ICU 05-14 12:00 → TELE-TD 05-18 17:42 → TELE1 05-19 10:49
PROVIDERS: ADMIT Nurse Practitioner Family; ATTEND Internal Medicine
PROC: 5A09357 Assistance with Respiratory Ventilation, Less than 24 Consecutive Hours, Continuous Positive Airway Pressure (ICD-10-PCS; principal; 2022-05-17)
DX: J15.9 Unspecified bacterial pneumonia (principal); J96.21 Acute and chronic respiratory failure with hypoxia; I50.33 Acute on chronic diastolic (congestive) heart failure; J44.0 Chronic obstructive pulmonary disease with (acute) lower respiratory infection; E87.1 Hypo-osmolality and hyponatremia; E66.2 Morbid (severe) obesity with alveolar hypoventilation; J45.901 Unspecified asthma with (acute) exacerbation; E87.3 Alkalosis; I47.1 Supraventricular tachycardia; I11.0 Hypertensive heart disease with heart failure; J96.22 Acute and chronic respiratory failure with hypercapnia; Z20.822 Contact with and (suspected) exposure to COVID-19; Z79.51 Long term (current) use of inhaled steroids; Z79.82 Long term (current) use of aspirin; Z79.899 Other long term (current) drug therapy; Z87.891 Personal history of nicotine dependence
CPT/HCPCS: 36415; 36600; 71045-TC; 80048-TC; 80061-TC; 80076-TC; 82728-TC; 83540-TC; 83735-TC; 83880; 84100-TC; 84443-TC; 84702-TC; 85025-TC; 87040-TC; 87081-TC; 93307-TC; 94760-TC; 94799-TC; C9803; G0378; J0153; J0456; J0696; J1940; J2405; J2920; J2930; J3010; J3490; J7030; J7050; J7060; U0003

== ENCOUNTER 2023-09-17 09:24 | Emergency (ER) | payer OTHER ==
[~2023-09-17] VITALS: Ht 154.9 cm; Wt 127.0 kg
[~2023-09-17 09:24] MED LIST changes: +FURO40TA5 PO; -HYDR-4303 PO; -IBUP-1955 PO; +NITR0.4T48 SL; -PRED20TA PO
[2023-09-17] MEDS ORDERED: CYCL10TA9 PO (09:50)
[2023-09-17] MEDS ORDERED: CYCLOBENZAPRINE 10 MG TABLET ONE (09:53)
[2023-09-17] MEDS ORDERED: IBUPROFEN 600 MG TABLET ONE (09:53)
[2023-09-17] MEDS: IBUPROFEN 600 MG TABLET PO ONE (09:55)
[2023-09-17] MEDS: CYCLOBENZAPRINE 10 MG TABLET PO ONE (09:55)
[2023-09-17 10:56] VITALS: BP 141/80; TEMP 98.3; O2SAT 98
== END 2023-09-17 10:57 | disposition home or self-care (01) ==
LOC: ER 09:24
DX: S00.81XA Abrasion of other part of head, initial encounter (principal); M25.512 Pain in left shoulder; M54.9 Dorsalgia, unspecified; I10 Essential (primary) hypertension; V43.52XA Car driver injured in collision with other type car in traffic accident, initial encounter; Y93.89 Activity, other specified; Y92.89 Other specified places as the place of occurrence of the external cause; Y99.8 Other external cause status

== ENCOUNTER 2024-07-04 06:47 | Emergency (ER) | payer OTHER ==
[~2024-07-04] VITALS: Ht 154.9 cm; Wt 127.0 kg
[~2024-07-04 06:47] MED LIST changes: +CYCL10TA9 PO
[2024-07-04 06:51] VITALS: TEMP 98.4
[2024-07-04 07:17] LABS: BASOPHILS % (AUTO) 0.4 % (0.0-2.0); EOSINOPHILS # (AUTO) 0.3 K/uL (0.0-0.7); EOSINOPHILS % (AUTO) 3.1 % (0.0-6.0); HEMATOCRIT 49 % (33-45); LYMPHOCYTES # (AUTO) 2.6 K/uL (0.8-4.8); LYMPHOCYTES % (AUTO) 27.3 % (20.0-44.0); MEAN CORPUSCULAR HEMOGLOBIN 32 PG (26.0-33.0); MEAN CORPUSCULAR HGB CONC 34 g/dl (31.0-36.0); MEAN CORPUSCULAR VOLUME 94 fL (82-100); MONOCYTES # (AUTO) 0.7 K/uL (0.1-1.30); MONOCYTES % (AUTO) 7.7 % (2.0-12.0); NEUTROPHILS # (AUTO) 5.9 K/uL (1.8-8.9); NEUTROPHILS % (AUTO) 61.5 % (43.0-81.0); PLATELET COUNT (AUTO) 257 K/uL (150-450); RED BLOOD CELL COUNT(AUTO) 5.23 MIL/uL (4.0-5.2); RED CELL DISTRIBUTION WIDTH 13.1 % (11.5-15.0); WHITE BLOOD COUNT (AUTO) 9.6 K/uL (4.3-11.0)
[2024-07-04 07:28] LABS: CALCIUM, SERUM 8.9 mg/dL (8.5-10.1); CARBON DIOXIDE 27 mmol/L (21-32); CHLORIDE 100 mmol/L (98-107); CREATININE 0.5 mg/dL (0.6-1.3); GLUCOSE 97 mg/dL (74-106); POTASSIUM 3.8 mmol/L (3.5-5.1); SODIUM SERUM 136 mmol/L (136-145); UREA NITROGEN, BLOOD 20 mg/dL (7-18)
[2024-07-04 08:43] VITALS: BP 142/98; O2SAT 99
== END 2024-07-04 08:43 | disposition home or self-care (01) ==
LOC: ER 06:47
DX: R07.89 Other chest pain (principal); F17.200 Nicotine dependence, unspecified, uncomplicated; I10 Essential (primary) hypertension; J45.909 Unspecified asthma, uncomplicated; Z79.82 Long term (current) use of aspirin; Z79.899 Other long term (current) drug therapy; Z87.59 Personal history of other complications of pregnancy, childbirth and the puerperium
CPT/HCPCS: 36415; 71045-TC; 80048-TC; 84484-TC; 85025-TC